=== PATIENT | male | born 1945 | race Caucasian/White ===

== ENCOUNTER → 2020-04-07 | Outpatient (CLI) | payer OTHER ==
[~2020-04-07] MED LIST: ADVIL100 M2 PO; ALTACE5 M1 PO; ASPIRIN325 PO; ASPIRIN81 M2 PO; CARVEDILOL25 MG PO; CARVEDILOL6.25 MG PO; CEFTIN500 MG PO; COLACE 100 MG100 MG PO; DOXYCYCLINE 10100 MG PO; FISH OIL 1,0001 EAC5 PO; FISH OIL 1,2001 EAC4 PO; GLUCOPHAGE1000 MG PO; HYDROCHLOROTH12.5 M1 PO; LISINOPRIL20 MG PO; LISINOPRIL5 MG PO; MULTAQ 400 MG400 MG PO; MULTAQ400 MG PO; NITROGLYCERIN0.4 MG SUBLING; NORCO 5-325 TA1 EACH PO; OMEPRAZOLE40 MG PO; OXYCONTIN10 M1 PO; PROTONIX40 M2 PO; REGLAN 10 MG TA10 M1 PO; SAVAYSA30 MG PO; SIMVASTATIN40 MG PO; TRAMADOL 50 MG50 MG PO; VITAMINC500 PO
== END ==
LOC: SJCVCIMAG 03-01 10:35
DX: R94.31 Abnormal electrocardiogram [ECG] [EKG] (principal); I11.9 Hypertensive heart disease without heart failure; I44.0 Atrioventricular block, first degree; I25.10 Atherosclerotic heart disease of native coronary artery without angina pectoris; E78.00 Pure hypercholesterolemia, unspecified; E11.9 Type 2 diabetes mellitus without complications; I65.23 Occlusion and stenosis of bilateral carotid arteries; I48.91 Unspecified atrial fibrillation; I87.2 Venous insufficiency (chronic) (peripheral); D68.59 Other primary thrombophilia; I35.0 Nonrheumatic aortic (valve) stenosis; M79.604 Pain in right leg; M79.605 Pain in left leg; R60.9 Edema, unspecified

== ENCOUNTER → 2020-05-17 | Outpatient (CLI) | payer OTHER | LOC: SJCVC 13:48 | PROVIDERS: ATTEND Internal Medicine Cardiovascular Disease | DX: R94.31 Abnormal electrocardiogram [ECG] [EKG] (principal); I48.0 Paroxysmal atrial fibrillation; I35.0 Nonrheumatic aortic (valve) stenosis; I25.10 Atherosclerotic heart disease of native coronary artery without angina pectoris; E11.9 Type 2 diabetes mellitus without complications; I10 Essential (primary) hypertension; M10.9 Gout, unspecified; K21.9 Gastro-esophageal reflux disease without esophagitis; Z79.84 Long term (current) use of oral hypoglycemic drugs; Z79.899 Other long term (current) drug therapy ==

== ENCOUNTER → 2020-06-21 | Outpatient (CLI) | payer OTHER | LOC: SJCVC 11:37 | PROVIDERS: ATTEND Internal Medicine Cardiovascular Disease | DX: R94.31 Abnormal electrocardiogram [ECG] [EKG] (principal); I35.0 Nonrheumatic aortic (valve) stenosis; E78.00 Pure hypercholesterolemia, unspecified; I25.10 Atherosclerotic heart disease of native coronary artery without angina pectoris; I10 Essential (primary) hypertension; E11.9 Type 2 diabetes mellitus without complications; I65.23 Occlusion and stenosis of bilateral carotid arteries; I48.91 Unspecified atrial fibrillation; I87.2 Venous insufficiency (chronic) (peripheral); D68.59 Other primary thrombophilia; Z79.899 Other long term (current) drug therapy ==

== ENCOUNTER → 2020-06-30 | Outpatient (CLI) | payer OTHER ==
[~2020-06-30] VITALS: Ht 175.3 cm; Wt 102.1 kg
[~2020-06-30] MED LIST changes: +LIPITOR40 MG PO; +PRADAXA150 MG PO; +TRULICITY1.5 MG/0.5 INTRADERM
[2020-06-30 07:16] VITALS: BP 134/79
[2020-06-30 07:29] LABS: HEMATOCRIT 40.5 % (42.0-52.0); MCH 25.6 pg (26.0-34.0); RBC 5.06 mil/uL (4.50-6.00); RDW 15.9 % (10.5-14.5); WBC 6.2 thou/uL (4.0-11.0)
[2020-06-30 07:56] LABS: CALCIUM 9.1 mg/dL (8.5-10.1); CREATININE 1.2 mg/dL (0.7-1.3); POTASSIUM 4.3 mmol/L (3.5-5.1)
--- NOTE | 2020-06-30 09:09 | TEE ---
[facility] [place] [address] TRANSESOPHAGEAL ECHOCARDIOGRAM Name: EUGENE TORRES Room #: REG RIMA Darden#: [id number] Admission: 06/30/20 Attend Phys: Chuck Rosas MD, Discharge: Date of : 43 Report #: [id number] THIS REPORT FOR: cc: Thiago Medina MD, Stanley P. MD Lundgren, Craig H. MD [facility] ~ APPROVED REPORT Study performed: 06/30/2020 07:55:40 EXAM: Comprehensive 2D, Doppler, and color-flow Echocardiogram Patient Location: Out-Patient Room #: 9 Status: routine BSA: 2.17 HR: 82 bpm BP: 148/66 mmHg Rhythm: NSR Other Information Study Quality: Excellent Indications Aortic Valve Disease Echo Enhancing Agent Indication: Rule out Shunt Agent(s) / Amount(s) Used: Agitated Saline 7 cc Procedure After obtaining informed consent, patient underwent transesophageal echo in the Director [employer]. Type of Sedation : Conscious Sedation Sedation was administered by Nurse. Sedation was achieved intravenously with: Versed (3 mg) Fentanyl (100 mcg) Transesophageal probe was inserted and advanced into esophagus without difficulty by Chuck Rosas MD. Echo enhancement indication: R/O Septal defect. Echo enhancement agent administered: Agitated Saline The AGUILAR was performed without complications. Throughout the procedure, the blood pressure, pulse oximetry, cardiac rhythm, and rate were monitored. [facility] [address] [place] [address] TRANSESOPHAGEAL ECHOCARDIOGRAM Name: EUGENE TORRES Room #: REG [facility]#: [id number] Admission: 06/30/20 Attend Phys: Chuck Rosas, Discharge: Date of : 43 Report #: [id number] The patient tolerated the procedure without adverse effects. Recovery from conscious sedation was uneventful and vital signs were stable. Left Ventricle The left ventricle is normal size. There is normal LV segmental wall motion. Mild concentric left ventricular hypertrophy. The left ventricular systolic function is normal. The left ventricular ejection fraction is within the normal range. LVEF is 55-60%. Right Ventricle The right ventricle is normal size. The right ventricular systolic function is normal. Atria Left atrium is dilated. No thrombus is visualized in the left atrium or appendage. No shunting by contrast bubble injection Right atrium is at the upper limits of normal. Prominent eustachian valve. Aortic Valve Aortic valve is severely calcified, trileaflet. No aortic regurgitation is present. Severe aortic stenosis. Mitral Valve The mitral valve is normal in structure. There is no mitral valve regurgitation noted. No evidence of mitral valve stenosis. Tricuspid Valve The tricuspid valve is normal in structure. There is no tricuspid valve regurgitation noted. Pulmonic Valve The pulmonary valve is normal in structure. There is no pulmonic valvular regurgitation. Great Vessels The aortic root is normal in size. The ascending aorta is normal in size. IVC is normal in size and collapses >50% with inspiration. Pericardium There is no pericardial effusion. <Conclusion> The left ventricular systolic function is normal. There is normal LV segmental wall motion. [facility] [address] [place] [address] TRANSESOPHAGEAL ECHOCARDIOGRAM Name: EUGENE TORRES Room #: REG [facility] [id number] Admission: 06/30/20 Attend Phys: Chuck Rosas, Discharge: Date of : 43 Report #: [id number] Mild concentric left ventricular hypertrophy. LVEF is 55-60%. Left atrium is dilated. No thrombus is visualized in the left atrium or appendage. No shunting by contrast bubble injection Aortic valve is severely calcified, trileaflet. Severe aortic stenosis, no insufficiency. (See transthoracic Doppler). The mitral valve is normal in structure. No mitral valve regurgitation. There is no pericardial effusion. <ELECTRONICALLY SIGNED> By: Chuck Rosas MD, FACC 06/30/20908 8 8 Chuck Rosas MD, FACC /INF
--- NOTE | 2020-07-01 09:09 | EKG ---
[facility] [place] [address] ELECTROCARDIOGRAM REPORT Name: BRITTANI TORRESN Delia Room #: REG [facility]#: [id number] Admission: 06/30/20 Attend Phys: Chuck Rosas MD, Discharge: Date of : 43 Report #: [id number] THIS REPORT FOR: cc: Thiago Medina MD, Stanley P. MD Lundgren, Craig H. MD [facility] ~ THIS REPORT FOR: //name// [facility] Test Date: 2020-06-30 Test Time: 07:32:11 Pat Name: EUGENE TORRES Department: Room: Gender: Stars Coordinator: [facility] : 1945 Requested By: Bryant West Order Number: [id number] MD: Chuck Rosas Measurements Intervals [place] Rate: 80 P: -17 VT: 214 QRS: 18 QRSD: 93 T: -12 QT: 337 QTc: 389 Interpretive Statements Sinus rhythm Borderline prolonged VT interval Borderline T abnormalities, inferior leads Compared to ECG 04/25/2012 09:20:56 T-wave abnormality now present Electronically Signed On 07-01-2020 9:09:10 CDT by Chuck Rosas [email or web address] <ELECTRONICALLY SIGNED> By: Chuck Rosas MD, [facility] 07/01/2009 1 1 Chuck Rosas MD, [facility] /EPI
--- NOTE | 2020-07-01 12:41 | HC ---
[facility] [place] [address] CONSULTATION Name: EUGENE TORRES Room #: REG RIMA [place]#: [id number] Admission: 06/30/20 Attend Phys: Chuck Rosas MD, Discharge: Date of : 43 Report #: [id number] THIS REPORT FOR: cc: Thiago Medina MD, Stanley P. MD Forman, John M. MD ~ CC: Chuck Medina DATE OF SERVICE: 06/30/2020 We were asked to see the patient by Dr. West. HISTORY OF PRESENT ILLNESS: The patient is a 74-year-old with coronary artery disease and aortic valve stenosis. The patient has a history of known aortic valve stenosis, but he had an episode of near syncope and while he was out of town he was admitted to [facility] in [place] and the aortic stenosis was identified. Once again echocardiography showed a satisfactory left ventricular ejection fraction with an aortic valve area of 0.85 cm2 at that institution. The patient attributes his weakness to over exertion. There is no preceding history of angina or shortness of breath. 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 PAST MEDICAL HISTORY: Also significant for atrial fibrillation, status post ablation, coronary artery disease with previous stent to the LAD, gout, hypertension, diabetes mellitus type 2, atrial fibrillation and flutter. MEDICATIONS AT HOME: Includes aspirin, acetaminophen, vitamin C, Lipitor, Coreg, Pradaxa, Trulicity, metformin, pantoprazole, Ultram. ALLERGIES: Claims to be ALLERGIC TO PENICILLIN. FAMILY HISTORY: Significant for lung cancer in mother and leukemia in father. SOCIAL HISTORY: Never smoker. REVIEW OF SYSTEMS: CONSTITUTIONAL: No fever, chills, weight change. EYES: No vision changes. HENT: No headache, hearing problems, nasal or throat problems. RESPIRATORY: Denies shortness of breath. Denies cough. CARDIAC: Denies angina. Denies palpitations. GASTROINTESTINAL: Gastroesophageal reflux symptoms, but no nausea, vomiting or [facility] [address] [place] [address] CONSULTATION Name: EUGENE TORRES Room #: REG [facility]#: [id number] Admission: 06/30/20 Attend Phys: Chuck Rosas MD, Discharge: Date of : 43 Report #: [id number]. GENITOURINARY: No urgency, frequency, or blood. MUSCULOSKELETAL: Sustained a shoulder strain while working in [place] and was told he has a rotator cuff strain, left side. SKIN: No rash. NEUROLOGIC: As mentioned in the near syncopal episode, thought to be cardiac in origin. No specific motor or sensory dysfunction. ENDOCRINE: No goiter, no tremor. PHYSICAL EXAMINATION: VITAL SIGNS: The patient is a pleasant fellow sitting having a meal after cardiac catheterization. Blood pressure 126/62, heart rate 83. HEENT: No scleral icterus, no arcus. NECK: No mass. I hear no bruit. CHEST: Clear. HEART: Rhythm is regular with grade 2-3 aortic systolic murmur radiating to the neck. ABDOMEN: Soft, no mass. EXTREMITIES: No clubbing, cyanosis or edema. SKIN: No rash or infection. NEUROLOGIC: No motor or sensory dysfunction. PSYCHIATRIC: Oriented x 3. Shows insight into problem and is a pleasant fellow. ASSESSMENT: Cardiac cath today showed high-grade lesions in the proximal LAD and circumflex. Right coronary has trivial disease. Transesophageal echo today shows severe aortic stenosis with a peak gradient of 86.7 and a mean gradient of 55.6, aortic valve area was estimated to be 0.79 cm2. I reviewed the cardiac catheterization findings with the patient. I have recommended coronary artery bypass and aortic valve replacement with a bioprosthesis. Risks and details of this were discussed. Options and alternatives were reviewed. Mechanical and biologic devices were compared and contrasted. The patient understands all of this and wishes to proceed. I have made recommendations to the patient that he obtain dental clearance. We will contact the patient and order our necessary studies and then schedule surgery. Thank you for the consult. <ELECTRONICALLY SIGNED> By: Elvis Ruth MD 07/01/20 1241 1553 1847 Elvis Ruth MD /nt
--- NOTE | 2020-07-01 13:49 | CATHLAB ---
[facility] [place] [address] INVASIVE PROCEDURE REPORT Name: EUGENE TORRES Room #: REG RIMA Darden#: [id number] Admission: 06/30/20 Attend Phys: Chuck Rosas MD, Discharge: Date of : 43 Report #: [id number] THIS REPORT FOR: cc: Thiago Medina MD, Stanley P. MD Mancuso, Gerald M. MD [facility] ~ APPROVED REPORT Study performed: 06/30/2020 09:18:16 Patient Details Patient Status: Out-Patient Room #: The patient is a 74 year-old male Event Personnel Bryant West Lead Process Engineer, Levi Sheth RN RN, Nani Patel RTR, MASTER YACHT Monitor, Carter Diaz RTR Scrub Procedures Performed Art Access - R femoral artery* Jessee Access - R femoral vein Coronaries Angiography w/Rt Heart Cath 9337888 RHCWCOR Supravalvular Aortography Injection 9718169 ISVA 12609 Initial Mod Sed Same Phys/QHP Gr5y 540507 66682 Mod Sed Same Phys/QHP Ea 276266 09302 Mod Sed Same Phys/QHP Ea 793555 Renal Bilateral Peripheral Angiography 2762320 CVRENALBIL Hemostasis w/ Mynx Hemostasis with Manual pressure Indication Dyspnea, Valvular heart disease Procedure Narrative The Right Groin^ was infiltrated with subcutaneous anesthesia. A PINNACLE 6FR Sheath #[id number] sheath was inserted into the RFA. Coronary angiography was performed using coronary diagnostic catheters. The right coronary system was accessed and visualized with a JR4 catheter. The left coronary system was accessed and visualized with a JL4 catheter. An aortogram of the ascending aorta was performed. Closure device was deployed with a 6 Fr MYNXGRIP 6/7F #[id number]. Hemostasis was obtained with manual pressure following sheath removal without any complications. The patient tolerated the procedure well and there were no complications associated with the procedure. There was no hematoma. [facility] [address] [place] [address] INVASIVE PROCEDURE REPORT Name: MELISSAEUGENE Delia Room #: REG [facility]#: [id number] Admission: 06/30/20 Attend Phys: Chuck Rosas, Discharge: Date of : 43 Report #: [id number] Intraoperative Conscious Sedation Sedation start time: 09:58 Case end Time: 10:38 Fentanyl 50 mcg Versed 1 mg Fluoro Time: 5.20 minutes Dose: DAP 04099.70 cGycm2 1620 mGy Contrast Type and Amount: Visipaque 100 ml Hemodynamics The right atrial mean pressure is 15 mmHg. The right ventricular pressure is 48/10 mmHg. The pulmonary artery pressure is 47/20 mmHg with a mean of 32 mmHg. The mean pulmonary capillary wedge pressure is 20 mmHg. The aortic pressure is 122/64 mmHg with a mean of 68 mmHg. The cardiac output using thermo method is 4.70 L/min. The cardiac index using thermo method is 2.17 L/min/m2. Conclusion 1. Successful right heart catheterization with cardiac output by thermodilution. See above hemodynamics. #2 supravalvular aortogram revealed mild aortic insufficiency with normal aortic root in size. Heavy valve calcification. #3 left main moderately calcified with distal tapered narrowing giving rise to LAD and circumflex. #4 proximal LAD disease of 90% large proximal vessel. With well-preserved distal vessel extends around the apex. Diagonal system mildly diseased. This proximal LAD lesion is proximal to a previously placed stent #5 circumflex OM with a tortuous and calcified takeoff of the left main 80 to 90% focal lesion giving rise to a large OM branch which is preserved. #6 dominant right coronary artery mildly disease giving rise to the PDA WING. #7 bilateral renal arteries are widely patent. These were selectively injected. Recommendations and plan: CV surgical consultation. Patient has severe/critical aortic stenosis by noninvasive means. See AGUILAR today. Patient will need revascularization at least two-vessel bypass with aortic valve replacement. Patient hemodynamically stable. <ELECTRONICALLY SIGNED> By: Bryant West MD, FACC 07/01/20 1348 47 Bryant West MD, FACC /INF
== END | disposition home or self-care (01) ==
LOC: CATH 06:34
PROVIDERS: Internal Medicine Cardiovascular Disease; ATTEND Internal Medicine
DX: R06.00 Dyspnea, unspecified (principal); I25.10 Atherosclerotic heart disease of native coronary artery without angina pectoris; I35.0 Nonrheumatic aortic (valve) stenosis; I10 Essential (primary) hypertension; I48.91 Unspecified atrial fibrillation; E78.5 Hyperlipidemia, unspecified; E11.9 Type 2 diabetes mellitus without complications; K21.9 Gastro-esophageal reflux disease without esophagitis; E78.00 Pure hypercholesterolemia, unspecified; F17.210 Nicotine dependence, cigarettes, uncomplicated; Z98.890 Other specified postprocedural states; Z79.899 Other long term (current) drug therapy; Z79.82 Long term (current) use of aspirin; Z11.59 Encounter for screening for other viral diseases; Z79.01 Long term (current) use of anticoagulants; Z88.0 Allergy status to penicillin

== ENCOUNTER → 2020-07-08 | Outpatient (CLI) | payer OTHER | LOC: SJCVCIMAG 08:34 | PROVIDERS: ATTEND Internal Medicine Cardiovascular Disease | DX: Z01.818 Encounter for other preprocedural examination (principal); I65.21 Occlusion and stenosis of right carotid artery; M25.471 Effusion, right ankle; M79.604 Pain in right leg ==

== ENCOUNTER 2020-07-29 06:11 | Inpatient (IN) | payer OTHER ==
[2020-07-21 09:37] LABS: URINE BILIRUBIN NEGATIVE (Negative); URINE BLOOD NEGATIVE (Negative); URINE CLARITY CLEAR; URINE COLOR YELLOW; URINE GLUCOSE-RANDOM* NEGATIVE (Negative); URINE KETONES NEGATIVE (Negative); URINE LEUKOCYTES-REFLEX NEGATIVE (Negative); URINE NITRITE-REFLEX NEGATIVE (Negative); URINE PROTEIN (DIPSTICK) NEGATIVE (Negative); URINE UROBILINOGEN 0.2 E.U./dl (0.2-1.0)
[2020-07-21 09:38] LABS: HEMATOCRIT 40.1 % (42.0-52.0); HEMOGLOBIN 12.6 gm/dL (14.0-18.0); MCH 25.1 pg (26.0-34.0); MCHC 31.4 g/dL (28.0-37.0); PLATELET COUNT 144 thou/uL (150-400); RBC 5.01 mil/uL (4.50-6.00); WBC 6.1 thou/uL (4.0-11.0)
[2020-07-21 09:41] LABS: APTT 53.2 Seconds (24.5-32.8); INR 1.2; PROTIME 12.6 Seconds (9.3-11.4)
[2020-07-21 10:16] LABS: ALBUMIN 3.9 g/dL (3.4-5.0); CALCIUM 9.1 mg/dL (8.5-10.1); CREATININE 1.3 mg/dL (0.7-1.3); POTASSIUM 4.3 mmol/L (3.5-5.1); TOTAL BILIRUBIN 0.5 mg/dL (0.2-1.0); TOTAL PROTEIN 7.2 g/dL (6.4-8.2)
[2020-07-21 12:18] LABS: ABSOLUTE NEUTROPHILS 3.9 thou/uL (1.4-8.2); ANISOCYTOSIS SLIGHT; ATYPICAL LYMPHS 2 %; OVALOCYTES OCCASIONAL; POIKILOCYTOSIS SLIGHT
[2020-07-21 12:19] LABS: LARGE PLATELETS OCCASIONAL
[2020-07-22 00:06] LABS: GLYCOHEMOGLOBIN (HGB A1C) 6.4 % (4.8-5.6)
--- NOTE | 2020-07-22 08:26 | EKG ---
[facility] [place] [address] ELECTROCARDIOGRAM REPORT Name: EUGENE TORRES Room #: PRE IN M.R.#: [id number] Admission: Attend Phys: Elvis Ruth MD Discharge: Date of : 43 Report #: [id number] THIS REPORT FOR: cc: Thiago Medina MD, Stanley P. MD Lundgren,Chuck Mi MD [facility] ~ THIS REPORT FOR: //name// [facility] Test Date: 2020-07-21 Test Time: 09:16:44 Pat Name: EUGENE TORRES Department: Room: Gender: Pluck Trimmer: stormy reyes : 1945 Requested By: Elvis Ruth Order Number: [id number] MD: Chuck Rosas Measurements Intervals [place] Rate: 85 P: -36 AR: 213 QRS: 38 QRSD: 104 T: -20 QT: 346 QTc: 412 Interpretive Statements Sinus rhythm Borderline prolonged AR interval Borderline T abnormalities, inferior leads Compared to ECG 06/30/2020 07:32:11 Premature ventricular complexes are no longer present Electronically Signed On 07-22-2020 8:25:58 CDT by Chuck Rosas [email or web address] <ELECTRONICALLY SIGNED> By: Chuck Rosas MD, [facility] 07/22/2025 5 5 Chuck Rosas MD, [facility] /EPI
[~2020-07-29] VITALS: Ht 175.3 cm; Wt 112.6 kg
[2020-07-29] VITALS (39 sets, daily range): BP systolic 73–180; BP diastolic 37–83
[2020-07-29 13:29] LABS: HEMATOCRIT 28.5 % (42.0-52.0); HEMOGLOBIN 9.2 gm/dL (14.0-18.0); MCH 25.7 pg (26.0-34.0); MCHC 32.5 g/dL (28.0-37.0); MCV 79.1 fL (80.0-100.0); RBC 3.6 mil/uL (4.50-6.00); RDW 15.9 % (10.5-14.5); WBC 11.5 thou/uL (4.0-11.0)
[2020-07-29 13:43] LABS: APTT 22.4 Seconds (24.5-32.8); FIBRINOGEN 225.1 mg/dL (210-360); PROTIME 14.5 Seconds (9.3-11.4)
[2020-07-29 13:46] LABS: INR 1.4
--- NOTE | 2020-07-29 15:00 | NUR ---
PT CAME FROM OR TO ICU AT 1430. PT ACCOMPANIED BY NURSING STAFF AND ANESTHESIOLOGIST. PT ON PROPOFOL FOR SEDATION. PT SWAN ADJUSTED BY ANESTHESIOLOGIST AT BEDSIDE. DR CARRENO AT BEDSIDE. PT CONNECTED TO ICU MONITORS.CONTINUE TO MONITOR.
[2020-07-29 15:03] LABS: HEMOGLOBIN 10.6 gm/dL (14.0-18.0); MCH 25.8 pg (26.0-34.0); MCV 78.1 fL (80.0-100.0); RBC 4.1 mil/uL (4.50-6.00); RDW 16.1 % (10.5-14.5); WBC 16.6 thou/uL (4.0-11.0)
[2020-07-29 15:05] LABS: BE(vivo) -0.9 mmol/L (-2 to +3); HCO3 25.8 mmol/L (22.0-26.0); PO2 88.4 mmHg (80.0-100.0); pH 7.313 (7.360-7.450); sO2 95.9 % (92.0-98.0)
[2020-07-29 15:14] LABS: CALCIUM 8.5 mg/dL (8.5-10.1); CREATININE 1.2 mg/dL (0.7-1.3); MAGNESIUM 2.2 mg/dL (1.8-2.4); POTASSIUM 4.3 mmol/L (3.5-5.1)
[2020-07-29 15:19] LABS: INR 1.2; PROTIME 12.3 Seconds (9.3-11.4)
[2020-07-29 15:20] LABS: APTT 33.1 Seconds (24.5-32.8)
--- NOTE | 2020-07-29 16:25 | NUR ---
ASSESSMENT: CM REVIEWED CHART. PT WAS ADMITTED FOR CORONARY ARTERY BYPASS X2. CM REACHED OUT TO PATIENTS . PT LIVES IN A HOUSE WITH HIS . PT HAS ABOUT 4 STEPS WITH HANDRAILS TO ENTER. ALL PTS NEEDS ARE ON ONE LEVEL. PT NORMALLY AMBULATES INDEPENDENTLY BUT DOES HAVE A CANE AND WALKER AT HOME IF NEEDED. PT HAS A SHOWER BENCH IN THE SHOWER. REPORTS PATIENTS HAS NO HX OF HH OR SNF. PT/OT HAS BEEN ORDERED TO SEE PATIENT BUT EVALS HAVE NOT BEEN COMPELTED YET. CM WILL CONTINUE TO FOLLOW TO ASSIST NEEDED.
--- NOTE | 2020-07-29 18:00 | NUR ---
PT BRADYCARDIC TO MID 30. TEMPORARY PACER ON AND ADJUSTED PER DR. CARRENO ORDERS. PT STARTED ON LEVOPHED AND DOBUTAMINE. PROPOFOL OFF SINCE 1640. PT FAILED CPAP TRIAL TWICE. CONTINUE TO MONITOR.
[2020-07-29 19:14] LABS: CALCIUM 8.5 mg/dL (8.5-10.1); CREATININE 1.4 mg/dL (0.7-1.3); POTASSIUM 4.9 mmol/L (3.5-5.1)
[2020-07-29 21:45] LABS: BE(vivo) -3.4 mmol/L (-2 to +3); HCO3 23.5 mmol/L (22.0-26.0); PCO2 49.9 mmHg (35.0-45.0); PO2 73.4 mmHg (80.0-100.0)
[2020-07-30] VITALS (23 sets, daily range): BP systolic 93–135; BP diastolic 38–69
[2020-07-30 05:33] LABS: CALCIUM 8.3 mg/dL (8.5-10.1); MAGNESIUM 2.5 mg/dL (1.8-2.4)
[2020-07-30 05:43] LABS: HEMATOCRIT 33.2 % (42.0-52.0); HEMOGLOBIN 10.4 gm/dL (14.0-18.0); MCH 25.4 pg (26.0-34.0); MCHC 31.4 g/dL (28.0-37.0); MCV 80.9 fL (80.0-100.0); RBC 4.1 mil/uL (4.50-6.00); RDW 16.3 % (10.5-14.5); WBC 16.8 thou/uL (4.0-11.0)
[2020-07-30 05:51] LABS: INR 1.2; PROTIME 12.7 Seconds (9.3-11.4)
--- NOTE | 2020-07-30 07:06 | NUR ---
Pt was extubated at 2157, and was placed on a face shield at 50%, he is seen moving the FS, and will quickly de-sat. At one point, he was placed on a NC, at 4 L/m, but he sleeps with his mouth open, and again, would de-sat. His lungs are a bit better than was intubated, but still is coarse and diminished. His SVO2 has been low through the night, 40's to 50's, but CO/CI have been WNL. Pt is VERY sensitive to IV fentanyl and was only given once this shift. He was not able to assist with turns, and requires two to reposition him in bed, he is unlikely to transfer well to the recliner. Insulin was started and is currently infusing at 3 units/hr.
[2020-07-30 09:37] LABS: URINE CREATININE-RANDOM* 168.6 mg/dL; URINE SODIUM-RANDOM* <5 mmol/L
--- NOTE | 2020-07-30 09:58 | O ---
[facility] [place] [address] OPERATIVE REPORT Name: EUGENE TORRES Room #: 248-P ADM IN M.R.#: [id number] Admission: 07/29/20 Attend Phys: Elvis Ruth MD Discharge: Date of : 43 Report #: [id number] THIS REPORT FOR: cc: Thiago Medina MD, Stanley P. MD Forman, John M. MD ~ CC: Elvis Medina DATE OF SERVICE: 07/29/2020 PREOPERATIVE DIAGNOSES: Coronary artery disease and calcific aortic stenosis and atrial fibrillation, chronic. POSTOPERATIVE DIAGNOSES: Coronary artery disease and calcific aortic stenosis and atrial fibrillation, chronic. OPERATION: Coronary artery bypass x 2 including left internal mammary artery to left anterior descending artery, saphenous vein to marginal artery and aortic valve replacement with 21 mm Krysta-Faustin bioprosthesis and placement of left atrial clip and endoscopic harvest, left greater saphenous vein. SURGEON: Elvis Ruth MD YACHT RIGGER: ALEXANDER Carolina ANESTHESIA: General. INDICATIONS: The patient is a 74-year-old who presented with a syncopal episode while in [place]. The patient was initially evaluated at [facility] where he was found to have important aortic valve stenosis. Subsequent cardiac catheterization at this institution also revealed high-grade proximal LAD and circumflex disease that presented as a left main equivalent. Right coronary had trivial disease. Aortic valve area is measured at 0.7 cm2. FINDINGS AND TECHNIQUE: After general anesthesia was established, saphenous vein was harvested using an endoscopic approach and prepared to use as a conduit. Exposure was obtained through median sternotomy. Left internal mammary artery was harvested. From chest wall, pericardial well was made. Cannulation sutures were placed. Heparin was given. Aorta was cannulated. Right atrium was cannulated. Cardioplegia needle was positioned in the aortic root. Retrograde cardioplegic catheter was placed in the coronary sinus. Cardiopulmonary bypass was established. The aorta was cross-clamped. Antegrade and retrograde cardioplegia were given. Ice was poured in the pericardial well. The heart was [facility] [address] [place] [address] OPERATIVE REPORT Name: BRITTANI TORRESN Room #: 248-P [facility] IN M.R.#: [id number] Admission: 07/29/20 Attend Phys: Elvis Ruth MD Discharge: Date of : 43 Report #: [id number] stopped. During electromechanical arrest, the distal anastomoses were performed and end-to-side anastomosis was made between vein and the marginal artery. It should be said that initially once cardiopulmonary bypass was established, the left atrial clip was applied. The base of the clip was measured and appropriate clip was selected and it was placed at the base of the appendage. As mentioned, the vein was sewn in end-to-side fashion to the marginal artery. Cold cardioplegia was given. Left internal mammary artery was sewn in end-to-side fashion to the left anterior descending artery. Patency of this vessel was checked with the temperature technique and the Doppler. Cold cardioplegia was given. At this point, attention was directed to the valve. Cardioplegia was given every 15 minutes through the retrograde cannula and down the right coronary ostium directly. An aortotomy was made approximately 15 mm above the right coronary ostium. The valve was inspected. It was a tricuspid valve that was severely calcified. The valve was excised and the annulus was debrided. The cavity of the ventricle was irrigated to remove any loose debris. Interrupted Ethibond sutures were placed sequentially through the red devil annulus and then through the sewing ring of a 21 mm device chosen for both patient and annulus size. The device was lowered into place and sutures were secured with the Cor-Knot device. The aortotomy was closed using Carrel technique. Cold cardioplegia was given. One proximal anastomosis was performed. When this was complete, warm retrograde cardioplegia was given followed by warm continuous blood to the coronary sinus. When this infusion was complete, the crossclamp was removed, de-airing maneuvers were performed. The anastomoses were inspected and found to be satisfactory. As the patient warmed, nice cardiac activity resumed, chest tubes and pacing wires were placed, and a marker was placed around the proximal anastomoses. When the patient was warm, he was weaned from cardiopulmonary bypass. Venous cannula was removed. Protamine was given, the aortic cannula was removed. Flows were measured in the bypass grafts. When hemostasis was satisfactory, chest was closed in the usual fashion. The [address] [address] OPERATIVE REPORT Name: EUGENE TORRES Room #: 248-P [facility] IN M.R.#: [id number] Admission: 07/29/20 Attend Phys: Elvis Ruth MD Discharge: Date of : 43 Report #: [id number] patient was taken to the Intensive Care Unit in good condition having tolerated the procedure well. All counts reported as correct. <ELECTRONICALLY SIGNED> By: Elvis Ruth MD 07/30/20 0958 0904 0950 Elvis Ruth MD /nt
--- NOTE | 2020-07-30 18:19 | NUR ---
ASSUMED CARE @ 0700 07/30/20, PT ASSESSMENTS AND VSS COMPLETE PER ICU PROTOCOL. NEURO INTACT BUT DROWSY AT INITIAL ASSESSEMENT, PT BECOMES MORE ALERT THE DAY PROGRESSES. DURING ASSESSMENT, RN TURNED OFF PACEMAKER, PT HR DROPS TO 40'S AND BP DROPS TO 80'S/40'S, PACEMAKER TURNED BACK ON AND REPORT GIVEN TO DR CARRENO DURING ROUNDING. PT ENCOUNTERED ON FACE-SHIELD, NOW ON OPTIFLOW FIO2 50 ON 40L, SAT LOW 90'S DR CARRENO @ BEDSIDE THIS AM, ORDERS RECIEVED AND EXECUTED. RN TOLD TO WEAN DOBUTAMINE SLOWLY OFF, AND IF NOT TOLERATED KEEP ON DOBUTAMINE OVERNIGHT FOR NIGHT STAFF. RN TOLD TO KEEP SWAN IN. WILL CONT TO MONITOR.
[2020-07-30 23:15] LABS: BE(vivo) -10.4 mmol/L (-2 to +3); HCO3 18.5 mmol/L (22.0-26.0); PCO2 54.7 mmHg (35.0-45.0); PO2 200.4 mmHg (80.0-100.0)
[2020-07-30 23:16] LABS: pH 7.146 (7.360-7.450)
[2020-07-31] VITALS (18 sets, daily range): BP systolic 105–130; BP diastolic 44–67
[2020-07-31 00:05] LABS: HEMATOCRIT 30.5 % (42.0-52.0); HEMOGLOBIN 9.6 gm/dL (14.0-18.0); MCH 25.5 pg (26.0-34.0); MCHC 31.4 g/dL (28.0-37.0); MCV 81.4 fL (80.0-100.0); RBC 3.75 mil/uL (4.50-6.00); RDW 16.4 % (10.5-14.5); WBC 19.5 thou/uL (4.0-11.0)
[2020-07-31 00:10] LABS: BE(vivo) -7.3 mmol/L (-2 to +3); HCO3 19.9 mmol/L (22.0-26.0); PCO2 47.3 mmHg (35.0-45.0); PO2 91.5 mmHg (80.0-100.0); sO2 95.6 % (92.0-98.0)
[2020-07-31 00:10] LABS: CREATININE 2.5 mg/dL (0.7-1.3); POTASSIUM 4.9 mmol/L (3.5-5.1)
[2020-07-31 00:11] LABS: pH 7.241 (7.360-7.450)
--- NOTE | 2020-07-31 00:35 | NUR ---
ASSUMED CARE OF PT AT 1900. PT ALERT AND ORIENTED AT THAT TIME. AT 2245 PT NOTED TO HAVE LOW O2 SAT ON ASSESSMENT BY RN PT NOTED TO BE DIAPHORETIC AND DUSKY. AT THAT TIME O2 WAS TITRATED UP VIA OPTIFLOW TO 80% AND BLOOD GLUCOSE WAS CHECKED (WNL). ADDITONAL NURSING STAFF SUGGS TO ROOM TO ASSIST WITH ASSISTED VENTILATION VIA AMBU BAG. CODE WAS CALLED AT 224. EPI 0.2 MG GIVNE IVP DUE TO HYPOTENSION. PT INTUBATED AT 225 BY ER PHYSICIAN. PT COLOR AND O2 SAT IMMEDIATELY IMPROVED. VERSED GIVEN AT 2301 DUE TO PT MOVING AND COUGHING. ADDITIONAL DOSE OF EPI 0.2 MG GIVEN AT 2300 DUE TO HPOTENSION. ORDERS TO TITRATE DOBUTAMINE FOR BP GIVNEN BY DR CARRENO. DR CARRENO AT BEDSIDE AT 2330. WILL CONTINUE TO MONITOR.
[2020-07-31 01:04] LABS: BE(vivo) -5.6 mmol/L (-2 to +3); PCO2 39.7 mmHg (35.0-45.0); sO2 96.7 % (92.0-98.0)
[2020-07-31 05:18] LABS: BE(vivo) -2.9 mmol/L (-2 to +3); HCO3 21.5 mmol/L (22.0-26.0); pH 7.395 (7.360-7.450); sO2 97.2 % (92.0-98.0)
[2020-07-31 05:52] LABS: HEMOGLOBIN 9.1 gm/dL (14.0-18.0); MCH 25.8 pg (26.0-34.0); MCHC 32.6 g/dL (28.0-37.0); MCV 79.1 fL (80.0-100.0); RBC 3.54 mil/uL (4.50-6.00); RDW 16.2 % (10.5-14.5); WBC 12.9 thou/uL (4.0-11.0)
[2020-07-31 06:04] LABS: CALCIUM 8.2 mg/dL (8.5-10.1); CREATININE 2.4 mg/dL (0.7-1.3); MAGNESIUM 2.3 mg/dL (1.8-2.4); POTASSIUM 4.5 mmol/L (3.5-5.1)
--- NOTE | 2020-07-31 09:42 | NUR ---
P.T. EVAL PLACED ON HOLD SECONDARY TO Pt CHANGE IN MEDICAL STATUS W/INTUBATION. PER DEPT POLICY, REQUEST NEW P.T. ORDERS WHEN PT IS DEEMED ABLE TO PARTICIPATE IN THERAPEUTIC EVALUATION.
[2020-07-31 10:00] LABS: BE(vivo) -1.5 mmol/L (-2 to +3); HCO3 21.5 mmol/L (22.0-26.0); PCO2 30.4 mmHg (35.0-45.0); pH 7.468 (7.360-7.450); sO2 96.9 % (92.0-98.0)
--- NOTE | 2020-07-31 18:47 | NUR ---
ASSUMED CARE @ 0700 07/31/20, PT ASSESSMENTS AND VSS COMPLETE PER ICU PROTOCOL. PT ON VERSED FOR SEDATION FOR VENT MANAGEMENT, PT ALSO GIVEN FENTANYL PUSHES FOR PAIN DURING THIS SHIFT. PT ON DOBUTAMINE GTT AND CARDENE GTT FOR BETTER CV OUTCOMES, SWAN STILL IN PLACE, PT ON PACEMAKER SET V RATE @ 50 FOR BACK-UP PT HAS NOT NEEDED THE PACEMAKER FOR MOST OF THE SHIFT. PASP 40-50 PADP 20'S, CI 1.7-2.1, SVR 900-1400, SVO2 40-50, CO 3.9-5, DR CARRENO AWARE OF THESE RANGES. SBP INTIALLY IN THE 140-150, AT MID AFTERNOON, SBP IN THE 160-170, DR CARRENO INFORMED, CARDENE STARTED. MEDIASTINAL CHEST TUBE DC'D DURING THIS SHIFT, RN PULLS CHEST TUBES, PT HAS A RUN OF V-TACH, ONLY AT THIS TIME, DR CARRENO AWARE, NO NEW ORDERS RECIEVED. PT SPIKES A TEMP, DR CARRENO INFORMED, ORDERS RECIEVED AND EXECUTED. WILL CONT TO MONITOR. AT BEDSIDE FROM 9AM-5PM, UPDATED ON CARE.
[2020-08-01] VITALS (11 sets, daily range): BP systolic 97–120; BP diastolic 47–64
[2020-08-01 03:34] LABS: BE(vivo) -2.2 mmol/L (-2 to +3); HCO3 22.7 mmol/L (22.0-26.0); PCO2 38.9 mmHg (35.0-45.0); PO2 66.3 mmHg (80.0-100.0); pH 7.383 (7.360-7.450); sO2 92.9 % (92.0-98.0)
--- NOTE | 2020-08-01 06:00 | NUR ---
VSS ART BP 125 TO 150 DOBUTAMINE GTT AT 3 MCG CARDENE 5 MG AND VERSED 6 MG FOR SEDATION. REMAINS INTUBATED. 800 CC UO AND 34 CC CHEST DRAINAGE THIS SHIFT. CHEST AND LEG DSG DRY AND INTACT, WILL CONT TO MONITOR
[2020-08-01 06:09] LABS: HEMATOCRIT 27.1 % (42.0-52.0); HEMOGLOBIN 8.8 gm/dL (14.0-18.0); MCH 25.4 pg (26.0-34.0); MCHC 32.5 g/dL (28.0-37.0); MCV 78.2 fL (80.0-100.0); RBC 3.47 mil/uL (4.50-6.00); RDW 16.4 % (10.5-14.5); WBC 12.2 thou/uL (4.0-11.0)
[2020-08-01 06:19] LABS: CREATININE 1.8 mg/dL (0.7-1.3); POTASSIUM 4.2 mmol/L (3.5-5.1)
[2020-08-01 07:01] LABS: POC BE 8 mmol/L (-2.0 to +3.0); POC CA IONIZED 4.6 mg/dL (4.5-5.3); POC GLUCOSE 202 mg/dL (70-99); POC HCO3 31.6 mmol/L (22.0-26.0); POC HEMOGLOBIN 11.6 g/dL (14.0-18.0); POC POTASSIUM 4.4 mmol/L (3.5-5.1); POC SODIUM 138 mmol/L (136-145); POC pCO2 40.7 mmHg (35.0-45.0); POC pH 7.499 (7.360-7.450)
[2020-08-01 07:01] LABS: POC BE 8 mmol/L (-2.0 to +3.0); POC CA IONIZED 4.9 mg/dL (4.5-5.3); POC GLUCOSE 111 mg/dL (70-99); POC HCO3 31.6 mmol/L (22.0-26.0); POC HEMOGLOBIN 12.2 g/dL (14.0-18.0); POC POTASSIUM 4.1 mmol/L (3.5-5.1); POC SODIUM 140 mmol/L (136-145); POC pCO2 43.4 mmHg (35.0-45.0)
[2020-08-01 07:01] LABS: POC BE 6 mmol/L (-2.0 to +3.0); POC CA IONIZED 4.7 mg/dL (4.5-5.3); POC GLUCOSE 176 mg/dL (70-99); POC HCO3 31.2 mmol/L (22.0-26.0); POC HEMOGLOBIN 10.9 g/dL (14.0-18.0); POC POTASSIUM 4.4 mmol/L (3.5-5.1); POC SODIUM 140 mmol/L (136-145); POC pH 7.361 (7.360-7.450)
[2020-08-01 07:02] LABS: POC BE 5 mmol/L (-2.0 to +3.0); POC CA IONIZED 4.7 mg/dL (4.5-5.3); POC GLUCOSE 168 mg/dL (70-99); POC HCO3 30.4 mmol/L (22.0-26.0); POC HEMOGLOBIN 11.2 g/dL (14.0-18.0); POC POTASSIUM 4.3 mmol/L (3.5-5.1); POC SODIUM 141 mmol/L (136-145); POC pCO2 53.5 mmHg (35.0-45.0); POC pH 7.363 (7.360-7.450)
[2020-08-01 07:02] LABS: POC BE 5 mmol/L (-2.0 to +3.0); POC CA IONIZED 4.3 mg/dL (4.5-5.3); POC GLUCOSE 188 mg/dL (70-99); POC HCO3 28.5 mmol/L (22.0-26.0); POC HEMOGLOBIN 10.5 g/dL (14.0-18.0); POC POTASSIUM 4.5 mmol/L (3.5-5.1); POC SODIUM 136 mmol/L (136-145); POC pH 7.471 (7.360-7.450)
[2020-08-01 07:02] LABS: POC BE 7 mmol/L (-2.0 to +3.0); POC CA IONIZED 4.7 mg/dL (4.5-5.3); POC GLUCOSE 163 mg/dL (70-99); POC HCO3 30.7 mmol/L (22.0-26.0); POC HEMOGLOBIN 10.5 g/dL (14.0-18.0); POC POTASSIUM 4.2 mmol/L (3.5-5.1); POC SODIUM 140 mmol/L (136-145); POC pCO2 45.7 mmHg (35.0-45.0); POC pH 7.436 (7.360-7.450)
[2020-08-01 07:02] LABS: POC BE 5 mmol/L (-2.0 to +3.0); POC CA IONIZED 4.6 mg/dL (4.5-5.3); POC GLUCOSE 180 mg/dL (70-99); POC HCO3 30.8 mmol/L (22.0-26.0); POC HEMOGLOBIN 10.9 g/dL (14.0-18.0); POC POTASSIUM 4.8 mmol/L (3.5-5.1); POC SODIUM 138 mmol/L (136-145); POC pCO2 54.6 mmHg (35.0-45.0); POC pH 7.359 (7.360-7.450)
[2020-08-01 07:02] LABS: POC BE 5 mmol/L (-2.0 to +3.0); POC CA IONIZED 4.5 mg/dL (4.5-5.3); POC GLUCOSE 190 mg/dL (70-99); POC HEMOGLOBIN 9.9 g/dL (14.0-18.0); POC POTASSIUM 5.1 mmol/L (3.5-5.1); POC SODIUM 138 mmol/L (136-145); POC pCO2 43.2 mmHg (35.0-45.0); POC pH 7.436 (7.360-7.450)
[2020-08-01 07:02] LABS: POC BE 3 mmol/L (-2.0 to +3.0); POC CA IONIZED 5.4 mg/dL (4.5-5.3); POC GLUCOSE 138 mg/dL (70-99); POC HCO3 27.1 mmol/L (22.0-26.0); POC HEMOGLOBIN 9.5 g/dL (14.0-18.0); POC SODIUM 138 mmol/L (136-145); POC pCO2 38.8 mmHg (35.0-45.0); POC pH 7.451 (7.360-7.450)
--- NOTE | 2020-08-01 07:40 | NUR ---
ORDERS RECEIVED AND CHART REVIEWED, CHANGE IN MEDICAL STATUS, PATIENT INTUBATED. WILL NEED NEW ORDERS WHEN APPROPRIATE TO START OT INTERVENTIONS
--- NOTE | 2020-08-01 10:44 | NUR ---
WEANING CARDENE AND DOBUTAMINE THIS AM. HAVING BURSTS OF A-FIB 130-140'S LASTING 1-2 MINUTES. DISCUSSED WITH ADELSO DUFFY, POCKETBOOK MAKER WITH CARDIOLOGY AND ORDER FOR IV LOPRESSOR X1 DOSE. VERSED WEANED OFF AND PLAN TO DO CPAP TRIAL WHEN MORE ALERT. TEMPORARY PACER REMAINS CONNECTED AND SET AT 50. INTERMITTANTLY V-PACING NOTED. WILL CONTINUE TO MONITOR PT. PT'S AT BEDSIDE AND UPDATED THIS AM.
--- NOTE | 2020-08-01 16:18 | NUR ---
ON-GOING ASSESSMENT: PT REMAINS ON THE VENT. PER NURSING PATIENT IS HAVING BURSTS OF A FIB. ONCE MORE ALERT WILL ATTEMPT TO START WEANING TRIALS. CM WILL CONTINUE TO FOLLOW TO ASSIST NEEDED.
--- NOTE | 2020-08-01 18:06 | PATH ---
[facility] [address] [place] [address] PATHOLOGY RPT PROCEDURE Name: ELVIS TORRES Room #: 248-P ADM IN M.R.#: [id number] Admission: 07/29/20 Date of : 43 Discharge: Report #: [id number] Path Case #: [id number] LCA Accession Number: [id number] . 01 Material submitted: . heart - AORTIC VALVE . 01 Clinical history: . CORONARY ARTERY DISEASE, AORTIC STENOSIS, AFIB . 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 (IUV:shady; 08/01/2020) QMS 08/01/2020 1259 Local . 02 Electronically signed: . Yodit Flores MD, Pathologist NPI- [id number] . 01 Gross description: . The specimen is received in formalin, labeled "Elvis Torres, aortic valve". Received are multiple segments of pale quezada, moderately calcified vascular tissue measuring 2.8 x 2.6 x 0.6 cm in aggregate dimensions. The specimen is submitted representatively in cassette A1, following light decalcification. (CAA; 07/29/2020) QA/QA 07/29/2020 1716 Local . 02 Pathologist provided ICD-10: I70.0 . 02 CPT . 666901, [id number] Specimen Comment: A courtesy copy of this report has been sent to [phone] Specimen Comment: [phone] Specimen Comment: Report sent to / DR SCHMIDT Performed at: [address], [place], [place] [id number] MD Ayaz Thornton MD Phone: [phone] Performed at: [address], [place] [id number] MD Yodit Flores MD Phone: [phone]
--- NOTE | 2020-08-01 18:28 | NUR ---
VERSED OFF SINCE 1044. PT REMAINS VERY DROWSY. WILL GRIMACE TO PAINFUL STIMULI BUT SLEEPING SOUND ALL DAY. SPONT MVT NOTED TO ALL EXTREMITIES BUT DOES NOT FOLLOW COMMANDS. PT'S AT BEDSIDE ALL DAY AND FREQUENTLY UPDATED. INTERMITTANT A-FIB THIS AFTERNOON WITH RATE 90-110. SUCTIONING SMALL AMOUNT OF THICK BLOOD TINGED SPUTUM TODAY. ALL GTTS WEANED OFF THIS AM. WILL CONTINUE TO MONITOR PT. PLAN TO CPAP WHEN HE IS AWAKE.
[2020-08-02] VITALS (42 sets, daily range): BP systolic 99–132; BP diastolic 50–67
[2020-08-02 05:45] LABS: CALCIUM 7.9 mg/dL (8.5-10.1); CREATININE 1.4 mg/dL (0.7-1.3); POTASSIUM 4.1 mmol/L (3.5-5.1)
--- NOTE | 2020-08-02 05:56 | NUR ---
Pt is finally waking up, he opened his eyes when radiology was in the room, he still doesn't follow commands, but is MARTELL's now. Amio is infusing at 0.5 mg/min, his BP is better, MAP's have been over 65 mmHg, except when the drip was off from 2114 to 2299. The rt radial art line is very positional, it has been zeroed several times, an appropriate waveform has been difficult to maintain, cuff pressures have been stable, see charting for those values. CO/CI have been within normal limits, trace generalized edema has been noted, weak pedal pulses. Lung bases are diminished, sats have been 98% and above on 40% FiO2. Adequate urine output, approx 600 ml's, draining yellow urine to DD. The bed is in the low/locked position, the siderails are up x 4 and pt is slowly progressing to POC goals.
[2020-08-02 06:23] LABS: POC BE 1 mmol/L (-2.0 to +3.0); POC CA IONIZED 5.1 mg/dL (4.5-5.3); POC GLUCOSE 119 mg/dL (70-99); POC HCO3 25.1 mmol/L (22.0-26.0); POC HEMOGLOBIN 10.5 g/dL (14.0-18.0); POC SODIUM 140 mmol/L (136-145); POC pCO2 39.4 mmHg (35.0-45.0); POC pH 7.413 (7.360-7.450)
--- NOTE | 2020-08-02 15:22 | NUR ---
1148-ASSUMED CARE OF PT. THORACENTESIS NOT DONE EARLIER-NOT ENOUGH FLUID PER DR. URBINA. AT BEDSIDE.--VW
--- NOTE | 2020-08-02 15:59 | NUR ---
ON-GOING ASSESSMENT: CM REVIEWED CHART, PATIENT REMAINS ON VENT. PER PULM PATIENT IS NOT YET READY FOR WEANING TRIALS DUE TO MENTAL STATUS AND WILL WAIT UNTIL MORE STABLE. PT IS ON AMIO GTT DUE TO AFIB RVR OVERNIGHT. CM WILL CONTINUE TO FOLLOW TO ASSIST NEEDED.
[2020-08-03] VITALS (30 sets, daily range): BP systolic 98–133; BP diastolic 46–67
[2020-08-03 05:38] LABS: HEMATOCRIT 27.7 % (42.0-52.0); HEMOGLOBIN 8.9 gm/dL (14.0-18.0); MCHC 32.2 g/dL (28.0-37.0); MCV 80.9 fL (80.0-100.0); RBC 3.42 mil/uL (4.50-6.00); RDW 16.4 % (10.5-14.5); WBC 12.2 thou/uL (4.0-11.0)
[2020-08-03 05:50] LABS: CALCIUM 8.1 mg/dL (8.5-10.1); CREATININE 1.5 mg/dL (0.7-1.3); POTASSIUM 4.7 mmol/L (3.5-5.1)
--- NOTE | 2020-08-03 06:39 | NUR ---
PT FOLLOWING COMMANDS. VITAL SIGNS STABLE THROUGHOUT THE NIGHT. CONTINUE TO MONITOR
--- NOTE | 2020-08-03 10:05 | NUR ---
JUST PRIOR TO CPAP TRIAL, PT REPOSITIONED FOR COMFORT AND TO STIMULATE PT. CPAP TRIAL FOR 15 MIN. RR-34, TV'S-250-300 WITH DECREASING TV'S, VERY DROWSY. PRESENT TALKING WITH PT, ATTEMPTING TO KEEP HIM AWAKE. REPLACED ON ASSIST CONTROL PER COLLABORATION WITH RT YON.
--- NOTE | 2020-08-03 16:00 | NUR ---
>>>>>> 1205: DR. CARRENO PRESENT, UPDATED ON PT STATUS INCLUDING FAILED CPAP TRIAL, PT REMAINING LETHARGIC, MOVES ALL EXTREMITIES SPONTANEOUSLY. AT BEDSIDE. UPDATING ON ALL CARES PROVIDED. ANSWERING QUESTION TO SATISFACTION. >>>>>> 1230: DR. THOMAS PRESENT. UPDATED ON FAILED CPAP. ORDER GIVEN FOR VERSED IV PRN. >>>>>> 1350: DR. CARRENO AND ALEXANDER BAUER PRESENT. SINCE CPAP FAILED, VITAL HP STARTED AT 30 PER OG. SEE MARS FOR NS FLUIDS. >>>>>> 1415: CARDIOLOGY PAGED AT 1245. DR. MARCH RETURNED CALL, NOTIFIED OF PACEMAKER SENSING INCORRECTLY AND HR 59-60. PACEMAKER OFF HOWEVER REMAINS ATTACHED TO EPICARDIAL WIRE. AMIODARONE OFF. NEW TO RESTART IF HR>100 OR AFIB WITH RVR. >>>>>> 1600: SLIGHTLY AWAKE, FOLLOWS COMMANDS. DOZES WITH EASE. JUNCTIONAL RHYTHM, ADEQUATE URINE OUTPUT.
[2020-08-04] VITALS (38 sets, daily range): BP systolic 95–153; BP diastolic 44–75
[2020-08-04 05:35] LABS: CALCIUM 8.1 mg/dL (8.5-10.1); CREATININE 1.1 mg/dL (0.7-1.3); POTASSIUM 4.3 mmol/L (3.5-5.1)
--- NOTE | 2020-08-04 06:44 | NUR ---
PT FOLLOWING COMMANDS. PT READY TO BE EXTUBATED . 1MG VERSED GIVEN AT NIGHT FOR PT BEING AGITATED AND TRYING TO PULL THE TUBE. BMX2. TOLERATING TUBE FEED. TUBE FEED OFF SINCE 5:30 AM FOR CPAP TRIAL TODAY. CONTINUE TO MONITOR
--- NOTE | 2020-08-04 08:53 | NUR ---
Followup: TF were briefly started yesterday, but now on hold for possible plans extubation. Will follow plan of care
[2020-08-04 09:25] LABS: BE(vivo) -2.9 mmol/L (-2 to +3); HCO3 25.6 mmol/L (22.0-26.0); PCO2 64.8 mmHg (35.0-45.0); PO2 84.9 mmHg (80.0-100.0); pH 7.214 (7.360-7.450)
--- NOTE | 2020-08-04 10:54 | NUR ---
ON THE VENT W/O SEDATION, AWAKE AND FOLLOWING COMMANDS APPROPRIATELY. VITALS STABLE AND DENIES PAIN. CPAP TRIAL THIS MORNING AND CRITICAL ABGs, PROTOCOL FOLLOWED AND PLACED BACK ON AC MODE BY RT SUKI AWAITING DR. THOMAS TO ROUND. A-LINE DC'D THIS MORNING. CHEST TUBE LT PLEURAL INTACT. WOUND VAC ON STERNAL INCISION INTACT. PHILLIPS WITH ADEQUATE OUTPUT. SPOUSE NOW AT THE BEDSIDE AND UPDATED AND QNS ANSWERED. WILL CONTINUE WITH POC.
[2020-08-04 12:36] LABS: BE(vivo) 0.9 mmol/L (-2 to +3); HCO3 27.3 mmol/L (22.0-26.0); PO2 94.5 mmHg (80.0-100.0); sO2 96.6 % (92.0-98.0)
--- NOTE | 2020-08-04 13:06 | NUR ---
DR. THOMAS ROUNDED AND NOTED ABG, STATED TO CPAP AGAIN AND OBTAIN ANOTHER ABG. COMPLETED AND CALLED NEW RESULTS TO HIM. ORDERS TO EXTUBATE GIVEN AND PATIENT EXTUBATED BY SUKI CHOI AT 1255.
--- NOTE | 2020-08-04 13:55 | NUR ---
PATIENT ON FACE SHIELD AND SEEMS TO BE STRUGGLING BUT DENIES SOA, RT SUKI NOTIFIED AND OBTAINING ABG AT THIS TIME.
[2020-08-04 14:04] LABS: BE(vivo) -3.2 mmol/L (-2 to +3); HCO3 25.8 mmol/L (22.0-26.0); PO2 77.7 mmHg (80.0-100.0); sO2 91.9 % (92.0-98.0)
[2020-08-04 14:05] LABS: PCO2 68.8 mmHg (35.0-45.0); pH 7.192 (7.360-7.450)
[2020-08-04 15:38] LABS: BE(vivo) -1.8 mmol/L (-2 to +3); HCO3 25.4 mmol/L (22.0-26.0); PCO2 55.9 mmHg (35.0-45.0); PO2 109.2 mmHg (80.0-100.0); sO2 97.3 % (92.0-98.0)
[2020-08-04 15:39] LABS: pH 7.276 (7.360-7.450)
--- NOTE | 2020-08-04 16:16 | NUR ---
PATIENT PLACED ON BIPAP AND DR. THOMAS NOTIFIED, ORDERS TO REPEAT ABG IN ONE HOUR. AFTER ONE HOUR ABG OBTAINED AND CALLED TO DR. THOMAS. PATEINT NOW RESTING AND STATES IS COMFORTABLE. WILL CONTINUE WITH BIPAP AND NOTIFY DR. THOMAS IF PATIENT IN DISTRESS. PER PATIENT STATES LEFT SHOULDER BOTHERING AND REQUESTS ICE PACK-ICE PACK PROVIDED AND PATIENT STATES IS MORE COMFORTABLE.
[2020-08-05] VITALS (24 sets, daily range): BP systolic 110–154; BP diastolic 46–73
--- NOTE | 2020-08-05 04:10 | NUR ---
PT AWAKE ALL NIGHT. NOTED RESTLESSNESS AND FORGETFULNESS BEGINNING OF SHIFT. NOW CALM @ ALERT WATCHING TV. DENIES PAIN, BUT WANTS BIPAP OFF. REORIENTED TO SITUATION AND NEED FOR TREATMENT. PT VOICES UNDERSTANDING AND REQUIRES FREQUENT REMINDERS TO LEAVE MASK ON.SPOUSE-HARPER CALLED X2 TO CHECK ON PT. UPDATED ON PT'S CARE AND SPOKE WITH PT WHICH HELPED TO KEEP HIM CALM.
[2020-08-05 05:02] LABS: CALCIUM 8.2 mg/dL (8.5-10.1); POTASSIUM 4.6 mmol/L (3.5-5.1)
--- NOTE | 2020-08-05 12:00 | NUR ---
WAS ON BIPAP THIS MORNING, OFF AT 0915 AND ON 3L AND TOLERATING WELL, DENIES SOA OR PAIN. VITALS STABLE. STERNAL INCISION WITH WOUND VAC, TEMP. PACEMAKER ATACHED TO PATIENT BUT OFF, LEFT PLEURAL CHEST TUBE WITH SEROSANG DRAINAGE TO SUCTION. PT/OT/ST RESUMED AND ASSISTED PATIENT UP TO THE CHAIR WITH MAX ASSIST. SPOUSE AT THE BEDSIDE AND UPDATED AND QNS ANSWERED. SLOWLY PROGRESSING TOWARD POC GOALS.
--- NOTE | 2020-08-05 14:17 | NUR ---
ON-GOING ASSESSMENT: CM REVIEWED CHART. PT WAS EXTUBATED ON 08/04 AND HAS BEEN ON BIPAP/OXYGEN. PT HAS BEEN WORKING WITH THERAPIES. CM SPOKE WITH PTS . CONSULT HAS BEEN PLACED AND THEY WILL EVALUATE PATIENT. CM DISCUSSED THAT INSURANCE AUTH WOULD HAVE TO BE RECEIVED PRIOR TO PATIENT DISCHARGING IF CAN ACCEPT. WILL AWAIT FURTHER INPUT FROM AT THIS TIME. CM DISCUSSED WITH AND THEY ARE AGREEABLE FOR IF PT QUALIFIES OTHERWISE THEY ARE AGREEABLE WITH HOME HEALTH AND HAVE NO PREFERENCE OF COMPANY. SHE REPORTS THEY REALLY DO NOT WANT PATIENT GOING TO A SNF DURING THE PANDEMIC AND IF PATIENT CANNOT GO TO THEY WILL HAVE FAMILY HELP AT HOME. CM WILL CONTINUE TO FOLLOW TO ASSIST NEEDED. AWAITING INPUT FROM .
--- NOTE | 2020-08-05 16:26 | NUR ---
PATIENT WORKED WITH P.T AGAIN THIS AFTERNOON. CHEST TUBE AND PACER WIRES DC'D BY FUNMILAYO. PATIENT'S SWALLOW EVAL UNSUCCESSFUL-STARTED ON PPN AND LIPIDS.
--- NOTE | 2020-08-05 20:37 | NUR ---
NOTIFIED DR. PADILLA THAT PATIENT IS REQUESTING SOMETHING TO SLEEP, TAKES TYLENOL PM AT HOME. ORDERS RECIEVED. AWARE THAT PATIENT IS UNABLE TO SWALLOW, BUT ORDER IS NOW OBTAINED FOR FUTURE USE.
[2020-08-06] VITALS (18 sets, daily range): BP systolic 116–148; BP diastolic 52–66
[2020-08-06 05:05] LABS: HEMATOCRIT 26.7 % (42.0-52.0); HEMOGLOBIN 8.6 gm/dL (14.0-18.0); MCH 26.1 pg (26.0-34.0); MCV 81.4 fL (80.0-100.0); RBC 3.28 mil/uL (4.50-6.00); RDW 17.2 % (10.5-14.5)
[2020-08-06 05:25] LABS: CALCIUM 8.3 mg/dL (8.5-10.1); CREATININE 0.9 mg/dL (0.7-1.3)
--- NOTE | 2020-08-06 11:00 | NUR ---
[facility] PATIENT AT 0700 TODAY. SPEECH THERAPY IN FOR SWALLOW EVALUATIONA AND PLACED ON A PUREEDED DIET. PATIENT IS FOLLOWING DIRECTIONS TO TAKE SPOONFUL OF WATER AFTER EACH BITE OF FOOD. AT BEDSIDE. PATIENT ASSISTED UP TO CHAIR AND REMAINS THERE.
--- NOTE | 2020-08-06 16:00 | NUR ---
PATIENT IS TAKING FLUIDS WELL, D5W HELD TO KEEP PATIENT IN FLUID LIMIT. PATIENT RETURNED TO BED APPROXIMATELY 1245. DOZING AT INTERVALS. INTRODUCER AND PHILLIPS CATH DC'D WITHOUT INCIDENT AND PATIENT VOIDED PER URINAL. MONITOR SHOW INTERMITTENT A FIB WITH VENT RESPONSE UP TO THE 120'S TO 130'S INTERMITTNETLY WITH EXERTION. REST AND RELAXATION ENCOURAGED. AWAITING TRANSFER TO .
--- NOTE | 2020-08-06 20:03 | NUR ---
PATIENT TRANSFERRED TO 212 PER BED AT 1715 WITH HIS BELONGINGS. D5W RESTARTED FOR ELEVATED SERUM SODIUM. THIS NURSE CONTINUED CARE OF PATIENT ON CCU. WILL CONTINUE TO MONITOR
--- NOTE | 2020-08-07 01:40 | NUR ---
ASSESSMENTS CHARTED, MEDS CHARTED GIVEN. PATIENT RESTING IN BED AT START OF SHIFT. PATIENT HAD JUST ARRIVED FROM ICU AND STILL BEING SETTLED INTO ROOM. MAINTENANCE FLUIDS RUNNING WHILE ON BIPAP. FALL PRECAUTIONS IN PLACE DURING SHIFT.
[2020-08-07 04:00] VITALS: BP 118/64
[2020-08-07 04:20] LABS: HEMATOCRIT 28.8 % (42.0-52.0); HEMOGLOBIN 9.2 gm/dL (14.0-18.0); MCH 25.9 pg (26.0-34.0); MCHC 31.9 g/dL (28.0-37.0); MCV 81.1 fL (80.0-100.0); RBC 3.55 mil/uL (4.50-6.00); RDW 17.7 % (10.5-14.5); WBC 9.7 thou/uL (4.0-11.0)
[2020-08-07 04:34] LABS: CALCIUM 8.7 mg/dL (8.5-10.1); POTASSIUM 4.3 mmol/L (3.5-5.1)
[2020-08-07 07:49] VITALS: BP 145/62
[2020-08-07 12:30] VITALS: BP 101/45
[2020-08-07 17:00] VITALS: BP 115/61
--- NOTE | 2020-08-07 17:21 | NUR ---
ASSESSMENT CHARTEE- MEDS PER JAN - NO CO'S OF PAIN OR NASUEA. MATI PURREE DIET AND FLUIDS. UP TO THE CHAIR WITH PHYS THERAPT ASSIST. AMBULATED A FEW FEET WITH STAFF THIS AFTERNOON. WOUND VAC REMAINS INSITU, ACCUCHECKS CHARTED - NO COVERAGE REQUIRED. PT PLACED ON ROOM AIR BY RT. PT DOES APPEAR A LITTLE BREATHLESS AT TIMES - INFORMED DR CARRENO AND HE STATED PATIENT WAS FINE. AT THE BEDSIDE FOR MOST OF THE DAY. NO CO'S AT THE PRESENT TIME.
[2020-08-07 20:13] VITALS: BP 101/54
[2020-08-08 00:53] VITALS: BP 139/62
[2020-08-08 05:22] VITALS: BP 117/51
--- NOTE | 2020-08-08 07:14 | NUR ---
assumed pt care at the change of shift, pt is awake, alert and orientedx4, afib on the monitor, bipap at night, o2 sats stable, meds given as per jan, denies pain or sob, no issues overnught, passed on report to day nurse
--- NOTE | 2020-08-08 07:30 | NUR ---
ASSUMED CARE OF PATIENT. INTRODUCED MYSELF. ASSESSMENT COMPLETED. PT ON 2L NC PER NC. CONTINOUS PULSE OX READING 92-96%. NO VOICED CONCERNS OF PAIN CURRENTLY. PT IS A/OX4.
[2020-08-08 08:04] VITALS: BP 139/72
--- NOTE | 2020-08-08 10:23 | EKG ---
[facility] [place] [address] ELECTROCARDIOGRAM REPORT Name: EUGENE TORRES Room #: 212- ADM IN M.R.#: [id number] Admission: 07/29/20 Attend Phys: Elvis Ruth MD Discharge: Date of : 43 Report #: [id number] THIS REPORT FOR: cc: Thiago Medina MD, Stanley P. MD Lundgren, Craig H. MD [facility] ~ THIS REPORT FOR: //name// [facility] Test Date: 2020-08-08 Test Time: 07:15:48 Pat Name: EUGENE TORRES Department: Room: 212 Gender: M [employer]. Commissioner: DANICA : 1945 Requested By: Chuck Rosas Order Number: [id number] MD: Chuck Rosas Measurements Intervals [place] Rate: 103 P: [place]: QRS: 59 QRSD: 143 T: 8 QT: 413 QTc: 541 Interpretive Statements Atrial fibrillation Right bundle branch block Compared to ECG 07/21/2020 09:16:44 Right bundle-branch block now present Sinus rhythm no longer present Electronically Signed On 08-08-2020 10:23:41 CDT by Chuck Rosas [email or web address] <ELECTRONICALLY SIGNED> By: Chuck Rosas MD, [facility] 08/08/20 1023 4 4 Chuck Rosas MD, [facility] /EPI
--- NOTE | 2020-08-08 11:20 | NUR ---
PT WALKED IN JOAQUIN WITH PT. WALKED ABOUT 30 FEET OUT OF THE ROOM AND BACK. PT ON O2 WITH AMBULATION.
--- NOTE | 2020-08-08 11:57 | NUR ---
CALLED AND TALKED WITH LOIS ON REHAB FLOOR REGARDING PT CONSULT. SHE TOOK DOWN PTS INFORMATION
[2020-08-08 12:00] VITALS: BP 110/57
[2020-08-08 17:06] VITALS: BP 114/52
--- NOTE | 2020-08-08 17:51 | NUR ---
PT UP FOR ALL THREE MEALS TODAY IN CHAIR. PT WALKED WITH PT TWICE TODAY OUT INTO [place]AQUIN. WORKED WITH OT AND GAVE HIMSELF A BATH. PT DENIES PAIN. VSS. PLAN FOR REHAB. AT BEDSIDE THROUGHOUT THE DAY. PARTICIPATED IN CARE OF PATIENT.
[2020-08-08 20:00] VITALS: BP 107/59
[2020-08-09] VITALS: BP 125/67
--- NOTE | 2020-08-09 03:51 | NUR ---
assumed pt care around 1900, pt is awake, alert and oriented, afib on the monitor, denies pain or sob, remains on 2l per nasal canula during the day and bipap at night, pt remained on chair as per his request tonight, sternal dressing intact, assessments as charted, medications given as per jan, no acute distress noted. progressing towards poc
[2020-08-09 04:30] VITALS: BP 119/50
[2020-08-09 07:36] VITALS: BP 109/63
--- NOTE | 2020-08-09 08:37 | EKG ---
[facility] [place] [address] ELECTROCARDIOGRAM REPORT Name: EUGENE TORRES Room #: 212- ADM IN M.R.#: [id number] Admission: 07/29/20 Attend Phys: Elvis Ruth MD Discharge: Date of : 43 Report #: [id number] THIS REPORT FOR: cc: Thiago Medina MD, Stanley P. MD Lundgren, Craig H. MD [facility] THIS REPORT FOR: //name// [facility] Test Date: 2020-08-09 Test Time: 07:42:16 Pat Name: EUGENE TORRES Department: Room: 212 Gender: M Cook Cold Meat: LIZBETH : 1945 Requested By: Chuck Rosas Order Number: [id number] MD: Chuck Rosas Measurements Intervals [place] Rate: 86 P: [place]: QRS: 48 QRSD: 149 T: 8 QT: 392 QTc: 469 Interpretive Statements Atrial fibrillation Right bundle branch block Compared to ECG 08/08/2020 07:15:48 No significant changes Electronically Signed On 08-09-2020 8:37:39 CDT by Chuck Rosas [email or web address] <ELECTRONICALLY SIGNED> By: Chuck Rosas MD, FACC 08/09/20 0837 0742 Chuck Rosas MD, [facility] /EPI
[2020-08-09 11:52] VITALS: BP 123/69
--- NOTE | 2020-08-09 14:13 | NUR ---
PATIENT IS A CANDIDATE FOR ACUTE REHAB/[facility]. INSURANCE AUTHORIZATION FOR ACUTE REHAB STAY REQUESTED THIS DATE. CLINICAL INFORMATION SENT TO INSURANCE COMPANY. AWAITING RESPONSE. COMMODITY SUPERVISOR AWARE. THANK YOU FOR THIS REFERRAL.
--- NOTE | 2020-08-09 14:40 | NUR ---
ON-GOING ASSESSMENT: CM REVIEWED CHART. [facility] HAS BEEN CONSULTED AND CAN ACCEPT PATIENT PENDING INSURANCE AUTHORIZATION. THEY REPORT THEY HAVE STARTED THE AUTH PROCESS AND WAITING TO HEAR BACK. CM WILL CONTINUE TO FOLLOW TO ASSIST NEEDED.
[2020-08-09 15:30] VITALS: BP 139/62
[2020-08-09 20:30] VITALS: BP 113/73
--- NOTE | 2020-08-10 02:33 | NUR ---
ASSUMED CARE OF PATIENT AT 1900. PATIENT DENIES PAIN AT ASSESSMENT. OFFERED PATIENT SNACK WITH HS MEDS AND PATIENT ATE 100%. PATIENT ON BIPAP UNTIL 224 AND THEN SWITCHED TO NC. OXYGEN SATURATION ON 2L OXYGEN IN UPPER 90s. ENCOURAGED I.S. PATIENT APPEARS TO BE PROGRESSING TOWARDS GOALS.
[2020-08-10 04:15] LABS: HEMATOCRIT 29.2 % (42.0-52.0); HEMOGLOBIN 9.1 gm/dL (14.0-18.0); MCH 25.5 pg (26.0-34.0); MCHC 31.3 g/dL (28.0-37.0); MCV 81.5 fL (80.0-100.0); RBC 3.58 mil/uL (4.50-6.00); WBC 12.3 thou/uL (4.0-11.0)
[2020-08-10 04:30] VITALS: BP 120/67
[2020-08-10 08:00] VITALS: BP 130/80
[2020-08-10 11:44] VITALS: BP 107/69
[2020-08-10] MEDS ORDERED: METFORMIN HCL500 M1 PO (13:38)
--- NOTE | 2020-08-10 14:07 | NUR ---
Received awake on bed. Due medications given as prescribed, able to swallow meds w/o difficulty; crushed and mixed with apple sauce. A+Ox4. On room air. Vital signs stable. On telemetry; no complaints of chest pain, crushing sensation and heaviness. On O2 at 2lpm via nasal cannula, to try to wean off; using Bipap at night- tolerating well. On pureed diet- assisted and encouraged in eating and drinking; no nausea, no vomiting and no abdominal pain noted. On blood sugar monitoring; taken and recorded accordingly, with sliding scale insulin ordered. On 2500ml fluid restriction- pt informed and aware. Continent of bowel and bladder, able to use urinal at times- output measured and recorded accordingly; onetime IV lasix given this AM as prescribed. With redness at groin- ointment applied. With sternal dressing connected to wound vac- dressing C/D/I; maintained at all times. With dressing at L Leg- weeping, dressing changed today- Dr Ruth informed and aware. Assisted in ADLs. Falls bundle in place. at bedside- update given. With SL at L hand- intact and flushing well;' dressing C/D/I- on IV antibiotics. Possible discharge to [facility], a/w insurance authorization- pt and informed and aware. To continue monitoring patient. Report given to YOLY Dill at approx 1330.
--- NOTE | 2020-08-10 15:57 | NUR ---
Patient accepted to [facility]. Updated Dr Robison and Lionel SEO. Nilo Sp with patient and family.
[2020-08-10] MEDS ORDERED: ASPIR 8181 MG PO (16:00)
--- NOTE | 2020-08-10 16:29 | NUR ---
ASSUMED CARE APPROX 1400. PT ALERT AND ORIENTED X4. ASSESSMENT CHARTED AND VSS. PT TO BE DISCHARGED TO [facility]. ON 2LNC W/O SIGNS OF DISTRESS NOTED. PT DENIES ACUTE PAIN. PT DENIES CHEST PAIN. RT POST CATH GROIN SITE C/D/I. NO HEMATOMA PRESENT. PT AFIB ON THE MONITOR. PT SLOWLY PROGRESSING TOWARDS PLAN OF CARE GOALS. WILL ESCORT TO [facility] TIMELY.
[2020-08-10 17:38] VITALS: BP 111/88
== END 2020-08-10 18:24 | DRG 219 ==
LOC: TBA 06:11 → ICU 06:11 → PRE 08:26 → ICU 14:53 → PRE 16:04 → 2N 08-06 17:35
PROVIDERS: Hospitalist; Internal Medicine; Internal Medicine Pulmonary Disease; Physician Assistant; ADMIT Surgery Vascular Surgery; ATTEND Surgery Vascular Surgery
PROC: 5A1221Z Performance of Cardiac Output, Continuous (ICD-10-PCS; principal; 2020-07-29)
PROC: 06BQ4ZZ Excision of Left Saphenous Vein, Percutaneous Endoscopic Approach (ICD-10-PCS; principal; 2020-07-29)
PROC: 021009W Bypass Coronary Artery, One Artery from Aorta with Autologous Venous Tissue, Open Approach (ICD-10-PCS; principal; 2020-07-29)
PROC: 02RF08Z Replacement of Aortic Valve with Zooplastic Tissue, Open Approach (ICD-10-PCS; principal; 2020-07-29)
PROC: 02100Z9 Bypass Coronary Artery, One Artery from Left Internal Mammary, Open Approach (ICD-10-PCS; principal; 2020-07-29)
PROC: 05HY33Z Insertion of Infusion Device into Upper Vein, Percutaneous Approach (ICD-10-PCS; 2020-08-02)
DX: I25.10 Atherosclerotic heart disease of native coronary artery without angina pectoris (principal); G92 Toxic encephalopathy; J95.821 Acute postprocedural respiratory failure; N17.9 Acute kidney failure, unspecified; J91.8 Pleural effusion in other conditions classified elsewhere; E44.0 Moderate protein-calorie malnutrition; E87.1 Hypo-osmolality and hyponatremia; F05 Delirium due to known physiological condition; D62 Acute posthemorrhagic anemia; E11.9 Type 2 diabetes mellitus without complications; I35.0 Nonrheumatic aortic (valve) stenosis; I10 Essential (primary) hypertension; E78.5 Hyperlipidemia, unspecified; T17.990A Other foreign object in respiratory tract, part unspecified in causing asphyxiation, initial encounter; X58.XXXA Exposure to other specified factors, initial encounter; Y93.89 Activity, other specified; Y92.89 Other specified places as the place of occurrence of the external cause; Y99.8 Other external cause status; I95.9 Hypotension, unspecified; D69.6 Thrombocytopenia, unspecified; D72.829 Elevated white blood cell count, unspecified; E83.51 Hypocalcemia; I48.0 Paroxysmal atrial fibrillation; R13.10 Dysphagia, unspecified; Z20.828 Contact with and (suspected) exposure to other viral communicable diseases; Z88.0 Allergy status to penicillin; Z68.36 Body mass index [BMI] 36.0-36.9, adult; Z88.8 Allergy status to other drugs, medicaments and biological substances; Z79.82 Long term (current) use of aspirin; Z79.899 Other long term (current) drug therapy
CPT/HCPCS: 10078; 10081; 47000; 47001; 47002; 47297; 47335; 48888; 50010; 50249; 50409; 50456; 50498; 50643; 50668; 50953; 51301; 51932; 52131; 52259; 52287; 52314; 53327; 53358; 54118; 56455; 56524; 56525; 56526; 56527; 56528; 56531; 56534; 56668; 56719; 56760; 56898; 57080; 57082; 57093; 57100; 57167; 57223; 62110; 62950; 83006

== ENCOUNTER 2020-08-10 16:06 | Inpatient (IN) | payer OTHER ==
[~2020-08-10] VITALS: Ht 175.3 cm; Wt 111.8 kg
[~2020-08-10 16:06] MED LIST changes: +ASPIR 8181 MG PO; +METFORMIN HCL500 M1 PO
[2020-08-10 18:30] VITALS: BP 110/57
[2020-08-10 19:55] VITALS: BP 104/57
--- NOTE | 2020-08-10 23:50 | NUR ---
PT ADMITTED TO [facility] EARLY EVENING FROM CCU. PT PLEASANT. ORIENTED AT THIS TIME. STERNAL DRESSING AND WOUND VAC WNL. DSG ON L CALF INTACT WITH CLEAR DRAINAGE. PICTURE TAKEN. ADMIT HX AND ASSESSMENT COMPLETED. VSS. MEDS GIVEN ORDERED. PT DENIES PAIN/N/SOA. SAT WNL ON 2L NC. UP TO THE BSC AND HAD A LARGE BM AT HS. VOIDING MODERATE AMOUNT PER URINAL. BG WNL. FLUID RESTRICTION FOLLOWED. SLEEPING WILL CONTINUE TO MONITOR FREQUENTLY.
[2020-08-11 06:18] VITALS: BP 156/85
[2020-08-11 06:23] LABS: HEMATOCRIT 29.8 % (42.0-52.0); HEMOGLOBIN 9.1 gm/dL (14.0-18.0); MCH 25.2 pg (26.0-34.0); MCHC 30.7 g/dL (28.0-37.0); MCV 82.2 fL (80.0-100.0); RBC 3.62 mil/uL (4.50-6.00); RDW 17.3 % (10.5-14.5); WBC 13.4 thou/uL (4.0-11.0)
[2020-08-11 06:50] LABS: CALCIUM 8.9 mg/dL (8.5-10.1); CREATININE 1.3 mg/dL (0.7-1.3); POTASSIUM 4.7 mmol/L (3.5-5.1)
--- NOTE | 2020-08-11 13:49 | NUR ---
cm visit with pt and spouse at bedside. cm cont to wear own face mask and shield. pt up in recliner chair, noted has o2 per nc on. no home o2 in past. will need to see can be weaned on oxygen prior to dc home. he is able to make his needs know but stated she was going to answer questions so he could rest. they live in house 4 steps with hr to enter. everything on main level. have cane that only use when needed, not on daily basic. small step over to get into shower. independent when feeling ok. manage own medication and drives vehicle per . will cont following as needed for dc needs.
[2020-08-11 19:42] VITALS: BP 139/60
--- NOTE | 2020-08-11 23:00 | NUR ---
PILLS CRUSHED IN APPLESAUCE, ONLY ABLE TO SWALLOW A FEW; TYLENOL, ELIQUIS, AMIODARONE GIVEN. PATIENT ASKED TO BE PUT ON BIPAP AND SLEEP IN CHAIR. DANIEL DRESSING REPLACED ON LEFT MEDIAL CALF. TUBIGRIPS PLACED ON BILATERAL LEGS FROM TOE TO KNEE.
[2020-08-12 05:34] LABS: CALCIUM 8.9 mg/dL (8.5-10.1); CREATININE 1.1 mg/dL (0.7-1.3); POTASSIUM 5.1 mmol/L (3.5-5.1)
[2020-08-12 08:00] VITALS: BP 117/57
--- NOTE | 2020-08-12 11:20 | NUR ---
PER PT'S , PT SEEMS VERY "DOWN," NOT WANTING TO DO THERAPY, AND SHE IS CONCERNED THAT HE IS GETTING DEPRESSED. THIS WILL BE NOTED TO THE DOCTOR AND PRIMARY RN TODAY, TO DETERMINE IF FURTHER WORKUP IS NEEDED. DURING OUR DISCUSSION, DR. BELTRÁN HAS ALSO LISTENED TO HER CONCERNS AND PROVIDED TARGETED EDUCATION REGARDING WAYS THAT HE CAN MAXIMIZE HIS RECOVERY.
--- NOTE | 2020-08-12 19:21 | NUR ---
ASSUMED CARE OF PT AT 0700. PT IS A&OX4 AND VITAL SIGNS ARE STABLE. PT DENIES PAIN AND PARTICIPATED IN SCHEDULED THERAPIES. ACCU CHECKS BID. FLUID RESTRICTION CHANGED TO 1800. IV LASIX GIVEN PER ORDERS. IV TO LEFT HAND D/C DUE TO INFILTRATION AND REPLACED IN THE LEFT FOREARM. PT INCONTINENT ONCE DURING SHIFT. DRESSING TO LLE CHANGED BY ALEXANDER MELLO. FALL AND STERNAL PRECAUTIONS IN PLACE AND NURSING WILL CONTINUE TO MONITOR.
[2020-08-12 19:29] VITALS: BP 110/58
--- NOTE | 2020-08-13 01:46 | NUR ---
PATIENT MUCH MORE AWAKE 08/12 EVENING THAN 08/11 EVENING. TOLERATING MEDS CRUSHED IN APPLESAUCE WITH THE HELP OF MINIMAL SIPS OF WATER TO HELP SWALLOW. STATES FUNMILAYO WITH CARDIOLOGY REMOVED TUBIGRIPS, STATES THAT HE DID NOT NEED HIS KNEE BRACE WHEN UP AT THIS POINT. DANIEL DRESSING LEFT MEDIAL CALF. SLEEPS IN CHAIR WITH LEGS ELEVATED. USED URINAL LAST EVENING. WAS READY FOR, AND ASKING FOR, BIPAP AT 2130 LAST EVENING.
[2020-08-13 05:12] LABS: CALCIUM 8.5 mg/dL (8.5-10.1); CREATININE 1.5 mg/dL (0.7-1.3); POTASSIUM 4.9 mmol/L (3.5-5.1)
[2020-08-13 08:00] VITALS: BP 134/70
--- NOTE | 2020-08-13 15:54 | NUR ---
ASSUMED CARE OF PT AT 0700. PT IS A&OX4 AND VITAL SIGNS ARE STABLE. PT DENIES PAIN AND PARTICIPATED IN SCHEDULED THERAPIES. DRESSING TO LLE CHANGED DUE TO SATURATION, NO REPLACEMENT DANIEL DRESSING AT THIS TIME, ABD, KERLIX AND KIRT WRAP PLACED TO THE EXTREMITIES. ACCU CHECKS ACHS. FLUID RESTRICTION IN PLACE. FALL PRECAUTIONS IN PLACE AND NURSING WILL CONTINUE TO MONITOR.
[2020-08-13 19:33] VITALS: BP 108/50
--- NOTE | 2020-08-14 05:18 | NUR ---
PT SLEEPING IN RECLINER. VOIDING PER URINAL. DENIES PAIN. RESTING COMFORTABLY. NO NEEDS VOICED. CALL LIGHT WITHIN REACH. FREQUENT OBSERVATION.
[2020-08-14 06:13] LABS: CALCIUM 8.8 mg/dL (8.5-10.1); CREATININE 1.7 mg/dL (0.7-1.3)
[2020-08-14 08:00] VITALS: BP 110/55
--- NOTE | 2020-08-14 17:46 | NUR ---
Assumed pt care this am, VS stable. was at the bedside for mos of the shift. Maintained on 2l of O2 via nc, uses the urinal. ON strict I and O and fluids restrictions of 1800. [place] on BLE noted, pt was able to work with PT and OT today. Medications are crushed and given with pudding. Prefers to stay on the recliner, was able to get up and walk in the room with his gait belt and walker. Wound on the left calf dressing c/d/i. Tubi roll up helper in BLE in place, BLE elevated. Mid sternal dressing c/d/i attached to a vac. POC followed with no signs or verbalizations of distress.
[2020-08-14 19:40] VITALS: BP 89/46
[2020-08-14 20:00] VITALS: BP 97/45
--- NOTE | 2020-08-15 03:57 | NUR ---
TOLERATED BIPAP WITH 3L O2 FROM 2200 TO 0355.
[2020-08-15 06:15] LABS: CALCIUM 8.8 mg/dL (8.5-10.1); CREATININE 1.6 mg/dL (0.7-1.3); POTASSIUM 4.6 mmol/L (3.5-5.1)
--- NOTE | 2020-08-15 07:08 | NUR ---
Patient stayed in his room for the whole shift and prefers being on his recliner than in bed. He uses CPAP at night with 3L of oxygen, which has been bumped up from 2L to maintain blood oxygen saturations. Patient ia alert and oriented x4, with pitting edema (+2) on bilateral lower extremities. Lung sounds are clear, with no noticeable respiratory distress. Patient has been pleasant and calm all night with no preoccupations or complaints. His call light is in place, accessible and he is able to make his needs known.
[2020-08-15 08:00] VITALS: BP 109/52
--- NOTE | 2020-08-15 10:40 | HC ---
[facility] [place] [address] CONSULTATION Name: EUGENE TORRES Room #: 515-P [facility] IN M.R.#: [id number] Admission: 08/10/20 Attend Phys: Saurabh Caceres MD Discharge: Date of : 44 Report #: [id number] THIS REPORT FOR: cc: Thiago Medina MD, Stanley P. MD Stephens, Thad A. MD ~ CC: Saurabh Medina DATE OF SERVICE: 08/11/2020 WOUND CARE CONSULTATION PERSONAL PHYSICIAN: Dr. Thiago Medina. CHIEF COMPLAINT: Left lower extremity swelling with weeping. HISTORY OF PRESENT ILLNESS: This is a 74-year-old white male who is status post elective coronary artery bypass grafting x 2 on 07/29/2020 and the patient also had an aortic valve replacement. Postoperatively, the patient had acute respiratory failure requiring intubation and was extubated on 08/04/2020. The patient was admitted today and was transferred to the rehab floor for acute rehabilitation and conditioning. On the day, he was noted to have increased swelling and drainage coming from his vein harvest site in the left lower extremity. We have been asked to assist in the care of this. The patient also has a sternal wound with a Prevena VAC in place and functioning. PAST MEDICAL HISTORY: Significant for hypercholesterolemia, coronary artery disease, now coronary bypass grafting; non-insulin dependent diabetes, hypertension, atrial fibrillation, previous back surgery for spinal stenosis. CURRENT MEDICATIONS: Multiple. I reviewed the patient's medication list. DRUG ALLERGIES: PENICILLIN. SOCIAL HISTORY: The patient does not smoke. Drinks alcohol occasionally. Lives at home with his . FAMILY HISTORY: Not pertinent to current medical condition. REVIEW OF SYSTEMS: CONSTITUTIONAL: The patient denies fevers or chills. NEUROLOGIC: The patient denies numbness, tingling, but has generalized weakness and debility. EYES: No complaints. ENT: No complaints. [facility] [address] [place] [address] CONSULTATION Name: EUGENE TORRES Room #: 515-P [facility] IN [facility].#: [id number] Admission: 08/10/20 Attend Phys: Saurabh Caceres MD Discharge: Date of : 44 Report #: [id number] CARDIAC: The patient complains of significant swelling in bilateral lower extremities, left greater than right. No chest pain or palpitations. RESPIRATORY: The patient denies shortness of breath, cough or wheezes. GASTROINTESTINAL: The patient denies nausea, vomiting, abdominal pain. GENITOURINARY: The patient denies urgency or frequency. MUSCULOSKELETAL: The patient denies chest wall pain from the CABG procedure. SKIN: The patient has an open wound from his left medial lower extremity from the vein harvest site as well as sternal wound, which is covered with a dressing. PHYSICAL EXAMINATION: VITAL SIGNS: Temperature 36.5, pulse 87, respirations 16, BP 117/57. GENERAL: This is an alert and oriented x 3, pleasant white male who is in [id number] distress secondary to pain. HEENT: Normocephalic, atraumatic. Mucous membranes are somewhat dry. Pupils are round. Sclerae white. NECK: Supple, without JVD. LUNGS: Slightly diminished breath sounds heard throughout. CHEST WALL: Prevena dressing is in place and functioning well over the midsternal line. ABDOMEN: Soft, otherwise nontender. EXTREMITIES: The patient moves all extremities without difficulty. Evaluation of left lower extremity reveals 3+ edema with significant drainage coming from the vein harvest site. Distal pulses are intact. Right lower extremity has 1+ edema. NEUROLOGIC: Cranial nerves 2-12 grossly intact. Motor and sensory grossly intact. LABORATORY DATA: White count 13.4, hemoglobin 9.1, BUN 34, creatinine 1.1. Hemoglobin A1c was 6.4, albumin 3.9. IMPRESSION: 1. Left lower extremity weeping edema through left lower extremity vein harvest site. 2. Status post coronary artery bypass grafting. 3. Diabetes mellitus. 4. Generalized debility. PLAN: DANIEL dressing will be placed over the left lower extremity wound for control of drainage. Bilateral lower extremities will be wrapped with Kerlix and Chris for control of edema. We will encourage the patient to elevate his legs as much as possible. We will have the patient maximize his oral protein supplementation for healing. We will utilize physical and occupational therapy for strengthening. We will continue all other [place] [address] CONSULTATION Name: EUGENE TORRES Room #: 515-P [facility] IN M.R.#: [id number] Admission: 08/10/20 Attend Phys: Saurabh Caceres MD Discharge: Date of : 44 Report #: [id number] continue the Prevena VAC for the next 2-3 days and then start local wound care dressings. I appreciate ability to consult. <ELECTRONICALLY SIGNED> By: Rigoberto Nails MD 08/15/20 1040 [id number] Rigoberto Nails MD /nt
[2020-08-15 11:52] LABS: HEMATOCRIT 25.3 % (42.0-52.0)
--- NOTE | 2020-08-15 13:12 | NUR ---
WOUND CARE F/U; I WAS CONTACTED BY FUNMILAYO MUNOZ TO REPLACE THE DANIEL DRESSING. THE WOUND REMAINS OPEN AND DRAINING SEOROSAGINOUS DRAINAGE. NO S/S OF INFECTION NOTED. PATIENT DENIES PAIN. THE PATIENT HAD ISSUES WITH SWELLING OVER THE WEEKEND. EDUCATION COMPLETED WITH THE PATIENT AND RELATED TO DANIEL DRESSING TROUBLE SHOOTING. THE SAME WAS DISCUSSED WITH THE RN TODAY. RECOMMENDATIONS; CONTINUE CURRENT PER FUNMILAYO MUNOZ
[2020-08-15 17:20] VITALS: BP 108/53
--- NOTE | 2020-08-15 19:17 | NUR ---
PT ALERT AND ORIENTED TIMES FOUR. VSS. 02 2L. PT DENIES PAIN. PT TOLERATES MEDS AND MEALS. PT WORKED WELL WITH PT/OT. PT UP SITTING IN THE CHAIR FOR MOST OF THE DAY. PT AT BEDSIDE. PT [facility] POC GOALS.
[2020-08-15 20:04] VITALS: BP 112/64
--- NOTE | 2020-08-16 01:40 | NUR ---
ASSUMED CARE OF PT AT 1915 ON 08/15/20. PT IS A&X4. IS ON 2L OF O2/NC DURING THE DAY & CPAP AT HS. DENIES PAIN IN STERNUM & LLE AT SURGICAL SITES. PREVENA & DANIEL DRSG C/D/I. ARLIN TO RLE IN PLACE. PT IS UP WITH 1-2 ASSIST, GB STAND PIVOT. FALL PRECAUTIONS & HOURLY ROUNDING CONTINUED THIS SHIFT. PT IS INCONT AT TIMES TO BLADDER. VOIDS PER URINAL NORMALLY. LABS & VITALS REVIEWED. PT IS STABLE. PT DECIDED TO SLEEP IN BED TONIGHT. CALL LIGHT WITH REACH. WILL CONITNUE TO MONITOR.
[2020-08-16 06:20] LABS: ALBUMIN 2.8 g/dL (3.4-5.0); CALCIUM 8.7 mg/dL (8.5-10.1); CREATININE 1.4 mg/dL (0.7-1.3); POTASSIUM 4.8 mmol/L (3.5-5.1)
--- NOTE | 2020-08-16 08:00 | HC ---
[facility] [place] [address] CONSULTATION Name: EUGENE TORRES Room #: 515-P [facility] IN M.R.#: [id number] Admission: 08/10/20 Attend Phys: Saurabh Caceres MD Discharge: Date of : 44 Report #: [id number] THIS REPORT FOR: cc: Thiago Medina MD, Stanley P. MD Deutch,Jevon Hinkle. PhD ~ CC: Saurabh Medina DATE OF SERVICE: 08/13/2020 NEUROBEHAVIORAL STATUS EXAM AGE: 74. ATTENDING PHYSICIAN: Saurabh Caceres MD FINANCIAL REPORTING ANALYST: Jevon Baer, PhD CLINICAL PRESENTATION: The patient is a 74-year-old white male who was admitted originally to the [facility] for Cardiothoracic Surgery. He received coronary artery bypass grafting x 2 for severe coronary artery disease and aortic valve replacement. After surgery, the patient developed acute respiratory failure and required reintubation. The patient developed some mild confusion. His assessment on admission to the rehabilitation unit is medical complexity with generalized debilitation, coronary artery disease, status post coronary artery bypass grafting on 07/29/2020, aortic stenosis, status post aortic valve replacement, dysphagia, acute hypoxemic respiratory failure, status post extubation, right pleural effusion with mucus plugging and possible infection, mild postoperative delirium versus encephalopathy, acute renal insufficiency, anemia, atrial fibrillation, diabetes mellitus type 2, hyperlipidemia and degenerative arthritis. A complete description of his medical condition and history along with medications can be found in his medical record. Neuropsychological consultation was requested to provide assistance in the assessment of cognitive and emotional status and to provide recommendations and services. He is and living with his . Prior to this most recent medical event, he was independent with instrumental activities of daily living including driving. 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 He is a college graduate. 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 The patient has 3 children. [facility] [address] [place] [address] CONSULTATION Name: EUGENE TORRES Room #: 515-P [facility] IN M.R.#: [id number] Admission: 08/10/20 Attend Phys: Saurabh Caceres MD Discharge: Date of : 44 Report #: [id number] TECHNIQUES UTILIZED: Clinical interview, review of medical records, staff consultation and behavioral observation, mini mental status exam 2 standard version, clock drawing, verbal fluency assessment and family interview -- . EXAMINATION FINDINGS: The patient was alert and cooperative with the assessment. His speech became dysarthric as he became more fatigued. Increased anxiety is reported. He does not report subjective depression. Decreased appetite and problems with memory and sleep are also reported. His endurance is poor. Performance on the MMSE 2 brief version was in the mild range of impairment with a raw score of 13, T score 35 and percentile rank of 7. He was 3/3 for initial registration, 4/5 for orientation to time, 5/[address] and 1/3 for immediate recall of 3 items after a brief time delay and distraction. Performance on the MMSE 2 standard version was in the borderline range with a raw score of 24/30, T score 35 and percentile rank of 7. The patient was 3/5 for serial 7's. He is also unable to copy a simple geometric design. Initial clock drawing was in the impaired range with poor visual spatial organization. Visual spatial construction is also showing impairment. With increased structure, executive functioning improved with clock drawing. Category fluency was extremely low with a raw score of 1 from brief letter fluency. Category fluency showed impairment with a raw score of 7. The patient is more distractable. His is also noticing decreased cognition. Currently, the patient is presenting with a cfyl-ao-htrukyci neurocognitive disorder. Impairment with executive functioning, sustained concentration, and immediate recall along with increased distractibility is noted. DIAGNOSTIC IMPRESSION: Neurocognitive disorder -- extent to be determined, likely in the mild to moderate range. Adjustment disorder with anxious mood. RECOMMENDATIONS: I provided the patient and his an explanation regarding cognitive functioning and issues that they have experienced since his recovery. Their expectations about his recovery was very different that experienced. Followup neurocognitive evaluation is indicated approximately 4-6 weeks after he was discharged. The patient is presenting with deficits with an impairment in memory, thought organization and sustained concentration along with visual spatial constructive [address] [address] CONSULTATION Name: EUGENE TORRES Room #: 515-P [facility] IN .R.#: [id number] Admission: 08/10/20 Attend Phys: Saurabh Caceres MD Discharge: Date of : 44 Report #: [id number] deficits. Continued speech therapy is indicated along with physical and occupational therapy to assist with development of endurance as well as visual spatial organization. Thank you very much for allowing me to provide the consultation on this patient. <ELECTRONICALLY SIGNED> By: Jevon Baer, PhD 08/16/20 [id number] Jevon Baer, PhD /nt
[2020-08-16 08:30] VITALS: BP 108/55
--- NOTE | 2020-08-16 11:28 | NUR ---
ASSUMED CARE AT 0700. PATIENT IS ALERT AND ORIENTED X4. PATIENT IS UP WITH ASSIST OF 1 TO BATHROOM. MID CHEST DRESSING DANIEL INTACT. PATIENT LUNGS ARE CLEAR AND DEMINISHED. PATIENT IS ON 02 AT 2L PER N/C. USES CPAP AT NOC. ABD IS SOFT WITH BSX4. DANIEL TO LEFT CALF AREA TO GRAFT SITE USED FOR CABG X2 PATIENT HAS S.L. IN HIS LEFT FORARM FOR IV LASIX R/T HIS EDEMA IN HIS LOWER EXTREMITES. FALL AND SAFETY PROTOCOLS IN PLACE. DENIES PAIN AT THIS TIME. AT BEDSIDE. CONTINUES TO PROGRESS SLOWLY TOWARDS D/C GOALS. UP IN CHAIR FOR BREAKFAST WITH S.T. WILL CONTINUE TO MONITER.
--- NOTE | 2020-08-16 13:02 | NUR ---
team meeting, reccommendation: outpt neuro pysch after dc home # [phone][facility]. [facility] ( pt, ot, st nursing). will need fww
[2020-08-16 19:55] VITALS: BP 104/55
--- NOTE | 2020-08-17 04:27 | NUR ---
PATIENT DECLINES BIPAP TONIGHT AND HAS BEEN ON 2L PNC WITH CONTINUOUS O2 SAT READING ABOVE 95% UNABLE TO EITHER SEAL SUCTION TO LEFT CALF WOUND OR TO STOP SATURATION OF DANIEL DRESSING AFTER DRAWTEX REPLACED AND UNABLE TO GET AQUACEL AG. NEW DANIEL DRESSING WITH UNDERLYING DRAWTEX APPLIED AND FRESH BATTERIES PLACED IN PUMP, DRESSING INTACT AT THIS TIME WITH PUMP LIGHT GREEN AND OK. PATIENT REMINDED TO KEEP LEGS UP AND ELEVATED, PILLOW PLACED UNDERNEATH CALVES. TOLERATED PILLS CRUSHED IN APPLESAUCE AND WAS ABLE TO "MIX-IN" HIMSELF. PROTONIX GIVEN WHOLE IN APPLESAUCE WITH PATIENT ENCOURAGED NOT TO CHEW IF AT ALL POSSIBLE. PLEASANT AND TALKING ON THE PHONE LAST EVENING
[2020-08-17 06:24] LABS: CALCIUM 8.6 mg/dL (8.5-10.1); CREATININE 1.7 mg/dL (0.7-1.3); POTASSIUM 4.8 mmol/L (3.5-5.1)
[2020-08-17 08:00] VITALS: BP 133/74
[2020-08-17 08:36] LABS: HEMATOCRIT 26.4 % (42.0-52.0); HEMOGLOBIN 8.2 gm/dL (14.0-18.0)
--- NOTE | 2020-08-17 11:35 | NUR ---
WOUND CARE NOTE; ASSESSED BILAT BUTTOCKS/SACRAL AREA W/ SPOUSE, HAZEL AREA, EXCORIATED, NO OPEN AREAS, NO S/S INFECTION, PROBABLY DUE TO SHEARING AND PT SITTING LONG PERIODS, AND SLEEPING IN CHAIR AT HS DUE TO SOB, SUGGESTED TO SLEEP IN BED AT HS AND LAY ON SIDE, STATES WILL LAY IN BED THIS AFTERNOON AFTER THERAPY AND WILL GET PHOTO THEN, VERBAL UNDERSTANDING BY PT AND SPOUSE RECOMMENDATIONS; LOW AIR LOSS PUMP TO BED, WAFFLE SEAT CUSHION, ZGUARD BID AND PRN, OFF LOADING PRESSURE RELIEF, IF ABLE SLEEP IN BED ON SIDE AT HS [employer]LECT[employer]QUIPMENT REPAIRMEN AWARE
--- NOTE | 2020-08-17 13:15 | NUR ---
cm visited with at nursing station " got hh information and [facility], never had home health before. [facility]."/ . [facility] will bring fww prior to dc on .
--- NOTE | 2020-08-17 15:09 | NUR ---
ASSUMED CARE AT 0700. PATIENT IS ALERT AND ORIENTED X4. PATIENT UP IN RECLINER FOR MEALS. LEGS ARE 3+. CARDIOLOGY MELTING OPERATOR HERE TO HOOK L.E. INCISION TO CHEST WOUND VAC. PATIENTS RIGHT LEG BEGAN TO LEAK TODAY. PATIENT HAS 2 NEW BLISTERS TO HER RIGHT TOE. PATIENT CONTINUES TO VOID PER URINAL. PATIENT LUNGS ARE CLEAR AND DEMINISHED. S.L. IN HIS LEFT FORARM IS PATIENT AND INTACT. PATIENT CONTINUES ON IVP LASIX FOR L.E. EDEMA. FALL AND SAFETY PROTOCOLS IN PLACE. DENIES PAIN. CONTINUES TO PROGRESS TOWARDS D/C GOALS. WILL CONTINUE TO MONITER.
--- NOTE | 2020-08-17 17:03 | NUR ---
FAXED REFERRAL TO [facility] SPOKE WITH ALEXUS IN INTAKE SHE RECEIVED REFERRAL AND WILL REVIEW. DP TO FOLLOW.
[2020-08-17 19:50] VITALS: BP 96/42
--- NOTE | 2020-08-18 05:48 | NUR ---
Patient is alert and oriented x4, with clear voice and shows some breathing difficulties with exertion. Patient is on 2L of oxygen via nasal canula (to be swithched to CPAP when patient goes to sleep). patient was reminded at the start of shift that his bed now has an air matress to help him feel more comfortable when sleeping in bed rather than on his recliner as he has been doing lately. Patient was transferred to his bed, and was anxious and uncomfortable during the first two to three hours being in bed; all needed and requested adjustments were made by staff to get patient comfortable. After multiple adjustments and some extra pillows, patient was calm in bed, had his eyes closed, visibly breathing, with no signs of distress or restlesness.
[2020-08-18 06:57] LABS: CALCIUM 8.7 mg/dL (8.5-10.1); CREATININE 1.7 mg/dL (0.7-1.3); POTASSIUM 4.2 mmol/L (3.5-5.1)
[2020-08-18 07:52] VITALS: BP 118/64
--- NOTE | 2020-08-18 09:48 | NUR ---
WOUND CARE F/U; RELATED TO PRESSURE INJURY. I AM OPTIMISTIC TODAY RELATED TO THIS INJURY. IT HAS IMPROVED. IT HAS A FRICTION COMPONENT WITH SOME FRAYED SKIN SEEN. NO S/S OF INFECTION. TURNING AND REPOSITIONING IN USE WELL A WAFFLE CUSHION. THE PATIENT IS ALSO ENCOURAGED TO STAND MUCH POSSIBLE AND TO PARTICIPATE IN ALL THERAPIES. THE PATIENT AND REMAIN POSITIVE. CONTINU CURRENT TREATMENT DISCUSSED WITH YOLY
--- NOTE | 2020-08-18 14:16 | NUR ---
FAXED REFERRAL TO [facility] SPOKE WITH INTAKE THEY RECEIVED REFERRAL [place]. THE PT'S PCP DR. DARLEEN SCHMIDT IS REQUESTING IF NURSING CAN HELP PT DO A VIRTUAL APPT PRIOR TO DC [facility]DR[facility] ([facility]) IS GOING TO LET NURSING KNOW. PT TO DC 08/23.
[2020-08-18 14:18] VITALS: BP 118/64
--- NOTE | 2020-08-18 14:42 | NUR ---
spoke with mrs castrejon, let her know out net work with [facility] and is ok to send to [facility]. " yes that is fine"/chase .
--- NOTE | 2020-08-18 15:42 | NUR ---
ASSUMED CARE OF PT AT 0700. PT IS A&OX4 AND VITAL SIGNS ARE STABLE. WOUND VAC TO LLE AND STERNUM IN PLACE. PT REPORTS PAIN TO LLE, MANAGED WITH PO MEDICATIONS, PARTICIPATED IN SCHEUDLED THERAPIES. PT ENCOURAGED TO CHANGE POSITION FREQUENTLY WHILE IN CHAIR. WAFFLE CUSHION ORDERED. ACCU CHECKS BID. STERNAL PRECAUTIONS IN PLACE, FALL PRECAUTIONS IN PLACE AND NURSING WILL CONTINUE TO MONITOR.
[2020-08-18 19:48] VITALS: BP 123/73
--- NOTE | 2020-08-19 05:37 | NUR ---
Patient is alert and oriented x4 and is on 2L of oxygen vis nasal cannula. Patient stayed on his recliner stating that the bed was too uncomfortable for him the first night he tried, and his bottom hurts more when in bed. A request for a waffle cushion has been placed to help him while in bed. Patient had his meds crushed in applesauce, was compliant and had no issues that required attention or solution. After his meds and small conversation with the night nurse, Patient re-adjusted self in recliner with elavated legs. closed his eyes and was resting quietly, with visible respirations and no agitation.
[2020-08-19 06:06] LABS: CALCIUM 8.5 mg/dL (8.5-10.1); CREATININE 1.8 mg/dL (0.7-1.3); POTASSIUM 4.5 mmol/L (3.5-5.1)
--- NOTE | 2020-08-19 10:26 | NUR ---
REVEIVED NOTIFICATION THAT THIS PATIENT'S PCP DR. SCHMIDT REQUIRES A FACE TO FACE VISIT BEFORE HE WILL COVER ORDERS OUTPATIENT FOR HOME HEALTH. ATTEMPTED TO REACH HIS OFFICE TODAY TO SET UP A [employer] CALL, BUT THE OFFICE IS CLOSED. PATIENT IS FOR DISCHARGE ON THURSDAY 08/23 AND WILL NEED HOME HEALTH TO BE SET UP PRIOR TO THAT TIME. WILL ATTEMPT TO CALL DR. SCHMIDT ON Saturday TO HAVE A FACE TO FACE WITH THE PATIENT PRIOR TO DISCHARGE SO THAT HE WILL HAVE MD COVERAGE FOR HIS HOME HEALTH. NOTIFICATION WAS SENT BY [facility] IN CASE MANAGEMENT REGARDING THE NEED FOR THE FACE TO FACE VISIT.
[2020-08-19 13:50] LABS: HEMATOCRIT 26.7 % (42.0-52.0); HEMOGLOBIN 8.3 gm/dL (14.0-18.0)
--- NOTE | 2020-08-19 15:37 | NUR ---
ASSUMED CARE AT 0700. PATIENT IS ALERT AND ORIENTED X4. PATIENT HAS 2+ EDEMA IN HIS LOWER EXTREMITIES. PATIENT HAS WOUND VAC TO MID CHEST AND LEFT LOWER LEG. UP IN THE CHAIR WITH A WAFFLE CUSHION. FALL AND SAFETY PROTOCOLS IN PLACE. NO C/O PAIN. CONITNUES TO PROGRESS SLOWLY TOWARDS D/C GOALS . WILL CONTINUE TO MONITER.
[2020-08-19 18:49] VITALS: BP 113/59
--- NOTE | 2020-08-20 02:30 | NUR ---
PATIENT RELUCTANT BUT WILLING TO GO FROM CHAIR TO BED FOR SLEEP TONIGHT. SLIGHTLY ON RIGHT SIDE WITH PILLOW, ON TOP OF WAFFLE CUSHION HE REQUESTED WITH LINEN SAVER BETWEEN WAFFLE AN PATIENT. LOW AIR LOSS MATTRESS UNDER ALL. Z-GUARD TO BILATERAL BUTTOCKS. DECLINES BIPAP TONIGHT. NO C/O PAIN
[2020-08-20 07:02] LABS: CALCIUM 8.6 mg/dL (8.5-10.1); CREATININE 1.5 mg/dL (0.7-1.3); POTASSIUM 4.7 mmol/L (3.5-5.1)
[2020-08-20 08:00] VITALS: BP 128/53
[2020-08-20 08:31] LABS: TOTAL PROTEIN 6.5 g/dL (6.4-8.2)
--- NOTE | 2020-08-20 19:37 | NUR ---
ASSUMED CARE OF PT AT 0700. PT IS A&OX4 AND VITAL SIGNS ARE STABLE. PT DENIES PAIN AND PARTICIPATED IN SCHEDULED THERAPIES. WOUND VAC IN PLACE TO STERNUM AND LLE. ACCU CHECKS BID. WOUND TO COCCYX CLEANED AND ZGUARD APPLIED PRN. PT ENCOUARAGED TO FREQUENTLY CHANGE POSITION. LEFT AC IV ACCESS. PT TOLERATED MEDICATIONS WHOLE ONE AT A TIME IN YOGURT AND SPEECH THERAPY APPROVED CHANGE FOR MEDICATION ADMINISTRATION. 1800ML FLUID RESTRICTION. FALL PRECAUTIONS IN PLACE AND NURSING WILL CONTINUE TO MONITOR.
[2020-08-20 20:00] VITALS: BP 109/53
[2020-08-21 04:22] LABS: CALCIUM 8.5 mg/dL (8.5-10.1); CREATININE 1.5 mg/dL (0.7-1.3); POTASSIUM 4.8 mmol/L (3.5-5.1)
--- NOTE | 2020-08-21 07:42 | NUR ---
progress pt a/o x 4 up with 1 gb walker wound vac inplace to sternum and left calf serous drainage noted. on 2 liters o2 gets soa with activity. voiding qs vss continue poc.
[2020-08-21 08:50] VITALS: BP 181/89
[2020-08-21 08:51] VITALS: BP 109/49
--- NOTE | 2020-08-21 18:42 | NUR ---
ASSUMED CARE OF PT AT 0700. PT IS A&OX4 AND VITAL SIGNS ARE STABLE. PT DENIES PAIN AND PARTICIPATED IN SCHEDULED THERAPIES. WOUND VAC TO STERNUM AND LLE DRAINING APPROPRIATELY, Z-GUARD TO BUTTOCKS, TURN Q2H. ACCU CHECKS BID. IV ACCESS TO LEFT FOREARM. AT BEDSIDE, EXPRESSED TO STAFF THAT SHE FEELS THAT THE PATIENT HAS MADE SIGNIFICANT IMPROVEMENTS WHILE ON UNIT. PT TRAINED TO DO TRANSFERS AND AMBULATION WITH PATIENT. MAY ASSIST PT WITH ASSISTIVE DEVICES WHILE IN ROOM. PER DR MARCH PT TO BE ENCOURAGED TO AMBULATE MORE WHEN AWAKE. FALL PRECAUTIONS IN PLACE. NURSING WILL CONTINUE TO MONITOR.
[2020-08-21 19:50] VITALS: BP 108/45
--- NOTE | 2020-08-22 04:17 | NUR ---
PATIENT REFUSED TO SLEEP IN BED TONIGHT, MOVED FROM ONE SIDE OF CHAIR TO THE OTHER MUCH THE CHAIR ALLOWS AND IN KEEPING WITH STERNAL PRECAUTIONS. Z-GUARD TO SACRUM, WAFFLE CUSHION IN CHAIR. LEGS ELEVATED AND PILLOWS UNDER LEGS. WOUND VAC TO LEFT LEG AND MIDLINE INCISIONS. PATIENT USING URINAL CONTINENTLY THIS SHIFT.
[2020-08-22 06:00] LABS: CALCIUM 8.7 mg/dL (8.5-10.1); CREATININE 1.6 mg/dL (0.7-1.3); POTASSIUM 5.1 mmol/L (3.5-5.1)
[2020-08-22 07:45] VITALS: BP 111/65
--- NOTE | 2020-08-22 10:06 | NUR ---
WOUND CARE F/U; A F/U ASSESSMENT PRIOR TO D/C TOMORROW WAS COMPLETED. THE PATIENT STANDS WELL ON HIS OWN AND HAS A SUPPORTIVE/ ENGAGED SPOUSE. THE COCCYX/BUTTOCKS WOUND IS STABLE. NO S/S OF INFECTION. CONTINUES TO IMPROVE. THE STERNAL AND LLE WOUNDS ARE BEING MANAGED BY THE CARDIO-THORASIC TEAM USING A PERVENA VAC. THE RIGHT LE HAS NO WOUND , BUT HAS EDEMA (1+) RECOMMENDATIONS; CONTINUE CURRENT POC DISCUSSED WITH YOLY
--- NOTE | 2020-08-22 10:41 | NUR ---
ASSUMED CARE AT 0700. PATIENT IS ALERT AND ORINETED X4. PATIENT MARTELL, HAT MEASURER ARE EQUAL. PATIENT LUNGS ARE CLEAR AND DEMINISHED. PATIENT CONTINUES ON RESPIRATORY TX. PATIENT IS ON 02 AT 3L PER NIGHTS. UP IN HIS RECLINER FOR MEALS. PATIENT HAS WOUND VAC TO HIS MID STERNAL AREA OF HIS CHEST AND HIS LEFT LEG. DRESSING CHANGED TO PATIENTS RIGHT LEG BY WOUND CARE TEAM. Z GUARD APPLIED TO HIS BUTTOCKS. FALL AND SAFETY PROTOCOLS IN PLACE. DENIES PAIN AT THIS TIME. CONTINUES TO PRPOGRESS TOWARDS D/C GOALS. PATIENT HAS S.L. IN HIS LEFT FORARM FOR IV DIURETIC THERAPY . WILL CONTINUE TO MONITER.
--- NOTE | 2020-08-22 15:13 | H ---
[facility] [place] [address] HISTORY AND PHYSICAL Name: EUGENE TORRES Room #: 515-P ADM IN M.R.#: [id number] Admission: 08/10/20 Attend Phys: Saurabh Caceres MD Discharge: Date of : 43 Report #: [id number] THIS REPORT FOR: cc: Thiago Medina MD, Stanley P. MD Smithson, David G. MD ~ CC: Saurabh Medina DATE OF SERVICE: 08/10/2020 HISTORY AND PHYSICAL/POST-ADMISSION PHYSICIAN EVALUATION HISTORY OF PRESENT ILLNESS: The patient is a 74-year-old male who was originally admitted to [facility] to the Cardiothoracic Surgery services for scheduled coronary artery bypass grafting x 2 for severe coronary artery disease and aortic valve replacement on 07/29/2020. After the surgery, he developed acute respiratory failure requiring reintubation on 07/30/2020. He was given Lasix drip, pressors, IV antibiotics and was subsequently extubated on 08/04/2020. He has been transitioned from BiPAP to nasal cannula O2. He had problems with mild confusion, acute renal insufficiency. He failed a swallow evaluation and was started on lipids and TPN and was upgraded to thickened liquids and pureed. He was noted to be quite debilitated and has been admitted now for acute in-hospital inpatient rehabilitation. Please see the full admission documentation and agree with the documentation as noted. PAST MEDICAL HISTORY, ALLERGIES, SOCIAL HISTORY: All as documented. MEDICATIONS: Please see the MAR. HABITS: As noted. REVIEW OF SYSTEMS: No chest pain, shortness of breath, abdominal discomfort. Please see the full listing as noted. PHYSICAL EXAMINATION GENERAL: Alert, oriented. He has decreased recall, but follows basic 1 step commands. He is on nasal cannula O2. Vitals are as noted. He has a midsternal incision, dressing is in place. CHEST: Sounded clear, somewhat decreased overall. CARDIOVASCULAR: Regular rate and rhythm. ABDOMEN: Bowel sounds positive, obese. EXTREMITIES: Upper extremities. He may have some decreased range of motion at her shoulders. Did not do full testing with his sternal precautions. Strength appears diffusely decreased. Lower extremities: He can lift bilateral lower extremities antigravity. He does have 2+ lower extremity edema. Tone appeared [facility] [address] [place] [address] HISTORY AND PHYSICAL Name: EUGENE TORRES Room #: 515-P [facility] IN M.R.#: [id number] Admission: 08/10/20 Attend Phys: Saurabh Caceres MD Discharge: Date of : 43 Report #: [id number] to be intact. He has been mod assist coming to stand. ASSESSMENT: 1. Medical complexity with generalized debilitation. 2. Coronary artery disease, status post coronary artery bypass grafting x 2 on 07/29/2020. 3. Aortic stenosis, status post aortic valve replacement on 07/29/2020. 4. Dysphagia. Order was given for speech therapy to reevaluate today. 5. Acute hypoxemic respiratory failure, status post extubation. 6. Right pleural effusion with mucus plugging and possible infection. 7. Mild postoperative delirium versus encephalopathy. 8. Acute renal insufficiency. 9. Anemia. 10. Atrial fibrillation. 11. Diabetes mellitus type 2. 12. Hyperlipidemia. 13. Degenerative arthritis. PLAN: The patient has been admitted for acute in-hospital inpatient rehabilitation. From a postadmission physician evaluation perspective, there are no relevant changes since the preadmission screening. Please see the above noted review of prior and current medical and functional conditions and comorbidities. Please see the patient's previous and current functional status. As far as risk of complications, the patient has multiple medical comorbidities as noted above. Initial plan of care involves the interdisciplinary acute inpatient rehabilitation program. Measurable functional goals would be for him to become modified independent with transfers, mobility and ADLs, so he can hopefully return back to his prior living situation. Prognosis is reasonably good with estimated length of stay probably at least 10 days to 2 weeks. Potential barriers would include his multiple medical comorbidities and decreased functional status. He does have the sternal precautions as ordered. The patient meets diagnostic criteria for an acute in-hospital inpatient rehabilitation stay. He meets the medical necessity criteria. We will have the java developer consultant physicians continue to follow. He does have the tolerance for therapies and has appropriate discharge goals back to the home setting. <ELECTRONICALLY SIGNED> By: Saurabh Caceres MD 08/22/20 1513 [id number] Saurabh Caceres MD /[facility]
--- NOTE | 2020-08-22 15:16 | PLAN ---
[facility] [place] [address] REHAB UNIT PLAN OF CARE Name: EUGENE TORRES Room #: 515-P ADM IN M.R.#: [id number] Admission: 08/10/20 Attend Phys: Saurabh Caceres MD Discharge: Date of : 43 Report #: [id number] THIS REPORT FOR: //name// CC: Saurabh Medina DATE OF SERVICE: 08/12/2020 PROGRESS NOTE/OVERALL PLAN OF CARE SUBJECTIVE: The patient was seen back today in followup. He is in no distress. Temperature 36.5, pulse 87, respirations 16, blood pressure 117/57. His was in the room as well. It looks like his weight today was incorrect and he will need to be reweighed, this will be addressed by nursing. His midline sternal dressing is in place. He is on nasal prong O2. Transfers are max assist. Once up, he is ambulating 15 feet mod assist with a standard cane. In occupational therapy, lower body dressing is min assist. He is on a mechanical soft diet, now being advanced from the [facility] and is allowed thin liquids. ASSESSMENT: A 74-year-old male with the following problem list: 1. Medical complexity with generalized debilitation. 2. Coronary artery disease, status post coronary artery bypass graft x 2 on 07/29/2020. 3. Aortic stenosis, status post aortic valve replacement. 4. Dysphagia, now mechanical soft. 5. Acute hypoxemic respiratory failure, status post extubation. 6. Right-sided pleural effusions with mucus plugging and possible infection. 7. Mild postoperative delirium versus encephalopathy. 8. Acute renal insufficiency. 9. Anemia. 10. Atrial fibrillation, paced. 11. Diabetes mellitus type 2. 12. Hyperlipidemia. PLAN: The overall plan of care is based on the preadmission screen, post-admission physician evaluation and the information garnered from therapy assessments. 1. Estimated length of stay is probably at least 10 days to 2 weeks pending progress. 2. Medical prognosis is reasonably good. 3. Anticipated interventions includes the interdisciplinary acute inpatient rehabilitation program. 4. Anticipated functional outcomes would be for the patient to improve as far as gait mobility, balance, ADLs swallowing, so he can return back to the home setting. Goal would be independence ambulatory at a walker level at least initially. [place] [id number] REHAB UNIT PLAN OF CARE Name: EUGENE TORRES Room #: 515-P [facility] IN M.R.#: [id number] Admission: 08/10/20 Attend Phys: Saurabh Caceres MD Discharge: Date of : 43 Report #: [id number] 5. Discharge destination would be back home with . 6. Expected therapy by discipline includes PT, OT and speech 1 hour per day each five days a week throughout the duration of the acute inpatient rehabilitation stay. <ELECTRONICALLY SIGNED> By: Saurabh Caceers MD 08/22/20 1516 [id number] Saurabh Caceres MD /maya
--- NOTE | 2020-08-22 16:20 | NUR ---
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 cm called and spoke with jose enrique , in his room. education that [facility] will call 24-48 hr after dc to set up appointment and cm team will send over dc orders to them. he also has zoom call with dr khan on saturday. " ok thank you"/.
[2020-08-22 19:35] VITALS: BP 119/50
--- NOTE | 2020-08-23 02:14 | NUR ---
PATIENT ENCOURAGED TO SLEEP IN BED ON HIS SIDE AGAIN, STATES HE DID NOT SLEEP WELL LAST NIGHT AND IS SLEEPING IN CHAIR TONIGHT. LEANING TO SIDE IN RECLINER TO MINIMIZE PAIN AND BREAKDOWN OF SACRUM. WOUND VAC DRAINING CLEAR YELLOW FROM SWOLLEN LEFT LEG AND MIDLINE PREVENA DRESSING. LEGS ELEVATED WITH PILLOWS
[2020-08-23 06:01] LABS: HEMATOCRIT 27.3 % (42.0-52.0); HEMOGLOBIN 8.4 gm/dL (14.0-18.0); MCHC 30.9 g/dL (28.0-37.0); MCV 80.7 fL (80.0-100.0); PLATELET COUNT 190 thou/uL (150-400); RBC 3.38 mil/uL (4.50-6.00); RDW 16.8 % (10.5-14.5); WBC 8.7 thou/uL (4.0-11.0)
[2020-08-23 06:15] LABS: CALCIUM 8.6 mg/dL (8.5-10.1); CREATININE 1.8 mg/dL (0.7-1.3); MAGNESIUM 1.8 mg/dL (1.8-2.4); PHOSPHORUS 4.8 mg/dL (2.5-4.9); POTASSIUM 5.1 mmol/L (3.5-5.1)
[2020-08-23 07:10] VITALS: BP 124/58
[2020-08-23] MEDS ORDERED: TYLENOL325 MG PO (07:54)
[2020-08-23] MEDS ORDERED: POTASSIUM CHLO20 MEQ PO (07:54)
[2020-08-23] MEDS ORDERED: VITAMIN D325 MC1 PO (07:54)
[2020-08-23] MEDS ORDERED: CARVEDILOL12.5 MG PO (07:54)
[2020-08-23] MEDS ORDERED: COLACE100 MG PO (07:54)
[2020-08-23] MEDS ORDERED: VOLTAREN GEL 1100 G2 TOP (07:54)
[2020-08-23 07:58] LABS: ABSOLUTE NEUTROPHILS 5.7 thou/uL (1.4-8.2)
[2020-08-23 07:59] LABS: ANISOCYTOSIS 1+; ATYPICAL LYMPHS 2 %; OVALOCYTES FEW
[2020-08-23 08:00] LABS: HYPOCHROMASIA 1+; POLYCHROMASIA OCCASIONAL
[2020-08-23 08:11] VITALS: BP 124/58
--- NOTE | 2020-08-23 08:13 | NUR ---
he edis to pa home today with [facility]. will transport him home.
[2020-08-23] MEDS ORDERED: DEMADEX20 MG PO (08:22)
[2020-08-23] MEDS ORDERED: OXYGEN MISCELL (10:23)
[2020-08-23] MEDS ORDERED: VENTOLIN HFA 1818 GM INH (10:23)
[2020-08-23] MEDS ORDERED: PACERONE 200 M200 M1 PO (10:56)
--- NOTE | 2020-08-23 11:13 | NUR ---
PT DISCHARGING TODAY TO HOME WITH [facility] FAXED DC ORDERS/SUMMARY SPOKE WITH [facility] IN INTAKE THEY RECEIVED ORDERS AND WILL CALL PT TO SET UP VISITS. DC ORDERS/SUMMARY ALSO FAXED TO DR SCHMIDT'S OFFICE RECEIVED CONFIRMATION HE WILL FOLLOW FOR HH.
--- NOTE | 2020-08-23 12:54 | NUR ---
I have reviewed the documentation by FESTUS OSMAN from 08/22/20 to 08/22/20 and I concur with it. FRANK MCNEIL, PT, DPT
--- NOTE | 2020-08-23 14:55 | NUR ---
PT ALERT AND ORIENTED TIMES FOUR. VSS PT DENIES PAIN. WOUND VAC IN PLACE. PT TOLERATES MEDS AND MEALS. PT WORKS WELL WITH PT/OT. PT UP SITTING IN THE CHAIR. AT BEDSIDE. PT PROGRESSING TOWRADS POC GOALS.
== END 2020-08-23 15:15 | disposition home health service (06) | DRG 947 ==
PROVIDERS: Internal Medicine Cardiovascular Disease; Nurse Practitioner; Nurse Practitioner Adult Health; ADMIT Physical Medicine & Rehabilitation; ATTEND Physical Medicine & Rehabilitation
DX: R53.81 Other malaise (principal); J96.01 Acute respiratory failure with hypoxia; J90 Pleural effusion, not elsewhere classified; I25.10 Atherosclerotic heart disease of native coronary artery without angina pectoris; Z95.1 Presence of aortocoronary bypass graft; I35.0 Nonrheumatic aortic (valve) stenosis; Z95.2 Presence of prosthetic heart valve; R13.10 Dysphagia, unspecified; D64.9 Anemia, unspecified; I48.91 Unspecified atrial fibrillation; E11.9 Type 2 diabetes mellitus without complications; E78.5 Hyperlipidemia, unspecified; M19.90 Unspecified osteoarthritis, unspecified site
CPT/HCPCS: 10112